=== PATIENT | male | born 1960 | race Caucasian/White ===

== ENCOUNTER 2021-08-03 10:43 | Outpatient (REF) | payer BC, SELFPAY ==
--- NOTE | ~2021-08-03 | XR_ITS ---
EXAMINATION: XR PELVIS CLINICAL INFORMATION: Pain COMPARISON: Pelvic x-rays July 16, 2019 TECHNIQUE: AP view of the pelvis. FINDINGS: The pelvic ring is intact. Sacroiliac joints are symmetric. Patient is status post left total hip arthroplasty. There is no periprosthetic fracture of the proximal left femur. Moderate degenerative changes of the right hip are again noted including moderately decreased right femoral acetabular joint space, osteophytes along the superolateral acetabulum and lateral femoral head/neck junction. There is also mild flattening of the right femoral head with mild coxa lobar angulation. Vascular calcifications noted. XR/XR pelvis 1-2V IMPRESSION: -Moderate degenerative changes of the right hip, similar in prominence to 2019 imaging.
== END 2021-08-03 10:44 | disposition home or self-care (01) ==
LOC: HO.HOSX 10:43
PROVIDERS: Visit Provider Orthopaedic Surgery
DX: M25.552 Pain in left hip (principal); Z96.642 Presence of left artificial hip joint
CPT/HCPCS: 20610; 72170; J1100

== ENCOUNTER → 2021-09-18 10:47 | Outpatient (BNVA) | payer BC, SELFPAY | PROVIDERS: Visit Provider Orthopaedic Surgery ==

== ENCOUNTER 2021-10-12 13:00 | Outpatient (RCR) | payer BC, SELFPAY ==
--- NOTE | 2021-08-11 13:05 | MHC.PT.EP ---
[facility] [place] Office [place] Office [place] Office [address] Brennan Hernández [address] [phone] F: [phone] F: [phone] F: [phone] F: [phone] Physical Therapy Plan of Care Date of Evaluation: Date of Surgery: ~4 years ago LEIF Diagnosis: contusion of L hip Assessment: Pt is a 61/yo retried M referred to PT for eval/treat for contusion of the L hip. Signs and symptoms presented are consisted with L hip dysfunction resulting in decreased ability and tolerance for the pt to perform WB activities such as walking, standing, sitting up from the chair, and negotiating stairs as well as decreased tolerance for performing functional household work like mowing his lawn. Functional limitation mentioned above are secondary to decreased strength, pain w/ end range motion, B muscle length discrepancy of hip flexor and HS (+ Joshua test, + SLR), TTP of L greater trochanteric region, LE postural impairment, gait deviation, and pain. pt is deemed appropriate to receive skilled PT to address his physical impairment and improve his functional abilities. Frequency and Duration: The patient will be seen 2x/wk for 5wk Short Term Goals: initiate HEP I w/ evidence of compliance pt will be able to ambulate 2 blocks w/ little to no difficulty Instructor Flying Goals: pt will be able to ambulate a mile with little to no difficulty; extreme difficulty pt will be able to negotiate 1 flight of stairs with little to no difficulty; initial mod difficulty pt will improve his LEFI score by the increment of 2 MDC/MCID; initial score 41/80 Treatment Plan: Modalities to reduce pain, spasms and effusion. Manual therapy to restore motion and function. Therapeutic exercise to improve strength and flexibility. Neuromuscular re-education for posture and balance. Therapeutic activities to return to functional activities of daily living. Electronically signed by: Bry Ellis PT Please sign and return to therapist. Thank you for your referral.
--- NOTE | 2021-12-22 13:37 | MHC.PT.DC ---
[facility] [place] Office [place] Office [place] Office [address] 140 [facility] [phone] F: [phone] F: [phone] F: [phone] F: [phone] Physical Therapy Discharge Report Diagnosis: contusion of L hip Date of Surgery: ~4 years ago LEIF Date of Evaluation: 08/11/21 Date of Discharge: 10/21/21 Treatments to Date: 12 Cancellations to Date: No Shows to Date: Discharge Status: Patient Elected to Stop Recommend MD Follow-up Discharge Summary: Pt called to cancel therapy; reports he persists with pain and gait dysfunction; Pt to f/u with ortho office. Electronically signed by: Bry Ellis PT. Please sign and return to therapist. Thank you for your referral.
== END 2021-12-22 13:37 | disposition home or self-care (01) ==
LOC: HO.PTCHIC 13:00
PROVIDERS: PCP Physician Assistant Medical; Visit Provider Orthopaedic Surgery
DX: S70.02XD Contusion of left hip, subsequent encounter (principal); Z96.642 Presence of left artificial hip joint
CPT/HCPCS: 97014; 97033; 97110; 97116; 97140; 97161

== ENCOUNTER 2021-10-30 10:35 | Outpatient (REF) | payer BC, SELFPAY ==
--- NOTE | ~2021-10-30 | XR_ITS ---
EXAMINATION: XR PELVIS. XR HIP, LEFT CLINICAL INFORMATION: Left hip pain. COMPARISON: 08/03/2021 TECHNIQUE: AP radiograph of the pelvis. Frog lateral view of the left hip. FINDINGS: Stable, standard appearance of the left total hip arthroplasty. No acute abnormality. Moderate degenerative changes of the right hip joint and the sacroiliac joints, similar to previous. XR/XR hip LT 1V IMPRESSION: Stable, standard appearance of the left total hip arthroplasty. 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
--- NOTE | ~2021-10-30 | XR_ITS ---
EXAMINATION: XR PELVIS. XR HIP, LEFT CLINICAL INFORMATION: Left hip pain. COMPARISON: 08/03/2021 TECHNIQUE: AP radiograph of the pelvis. Frog lateral view of the left hip. FINDINGS: Stable, standard appearance of the left total hip arthroplasty. No acute abnormality. Moderate degenerative changes of the right hip joint and the sacroiliac joints, similar to previous. XR/XR pelvis 1-2V IMPRESSION: Stable, standard appearance of the left total hip arthroplasty. 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
== END 2021-10-30 10:36 | disposition home or self-care (01) ==
LOC: HO.HOSX 10:35
PROVIDERS: Visit Provider Orthopaedic Surgery
DX: T84.031D Mechanical loosening of internal left hip prosthetic joint, subsequent encounter (principal)
CPT/HCPCS: 72170; 73501

== ENCOUNTER 2021-12-23 | Outpatient (REF) | payer BC, SELFPAY ==
[2021-12-23 12:16] VITALS: BP 201/91; PULSE 58; RESP 16; O2SAT 97; BMI 28.8
--- NOTE | 2021-12-23 12:36 | P.CONAN_ITS ---
HPI - Anesthesia Eval Consult details Narrative: Per Ortho notes, surgery cancelled and pt referred to Pain Management 61yo M for Left Hip Replacement Revision Total H/O of DI with total hip 2018. Glidescope = ok view, but difficulty advancing. Changed ETT from 8.0 to 7.5. Old anesthesia record on chart PCP Cleared BP elevated at PAT. Pt states forgot to take AM BP meds. Instructed to take WILLEM. 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 (Acute) Status post total hip replacement, left (Acute) Past Medical History Medical History Arthritis Fatty liver GERD (gastroesophageal reflux disease) Gout High cholesterol HTN (hypertension) Murmur, heart Shoulder joint pain Surgical History Surgical History H/O right knee surgery History of neck surgery Hx of colonoscopy Hx of elbow surgery Status post total hip replacement, left Social History Social History Are you a primary veterinarian laboratory animal care to a significant other at home: No Do you presently have visiting nurse or other home services: No Alcohol intake: current Alcohol intake frequency: holidays/special occasions only Patient Tobacco Use Status: Former Tobacco user Quit Date: 11/2019 Tobacco use type: Cigar Years Smoked: 30 Substance Use Type: Marijuana Narrative Narrative: No recent illness No CP/SOB with very limited activity. Limited to pain. Meds Allergies Allergy/AdvReac Type Severity Reaction Status Date / Time No Known Allergies Allergy Verified 12/31/21 10:08 [No Known Allergies*] Home Medications Medication Instructions Recorded Confirmed Last Taken Type acetaminophen 500 mg tablet 1,000 mg PO Q8H PRN 08/03/21 12/23/21 Unknown History allopurinol 100 mg tablet 200 mg PO DAILY 08/03/21 12/31/21 Unknown History atorvastatin 10 mg tablet 10 mg PO DAILY 08/03/21 12/31/21 Unknown History latanoprost 0.005 % eye drops 1 drp OPHTHALMIC (EYE) BEDTIME 08/03/21 12/31/21 Unknown History lisinopril 40 mg tablet 40 mg PO DAILY 08/03/21 12/31/21 Unknown History amlodipine 5 mg tablet 1 tab PO DAILY 12/23/21 12/31/21 Unknown History omeprazole 20 mg capsule,delayed 20 mg PO DAILY 12/23/21 12/31/21 Unknown History release tramadol 50 mg tablet 1 tab PO BID PRN 12/23/21 12/31/21 Unknown History trazodone 50 mg tablet 1 - 2 tab PO BEDTIME PRN 12/23/21 12/31/21 Unknown History Exam Exam Date and Time: December 23, 2021 1236 Height,Weight and Vital Signs: Height 5 ft 9 in Weight 88.451 kg Last Vital Signs Pulse 58 12/23/21 12:16 Resp 16 12/23/21 12:16 BP 201/91 H 12/23/21 12:16 Pulse Ox 97 12/23/21 12:16 Pertinent Lab Results Pertinent Lab Results: From outside facility WBC 6.6 Hgb 16 Hct 46.9 Plt 257 Na 139 K 4.6 Cl 107 CO2 26 BUN 20 Creat 1.03 Narrative Narrative: EKG 12/18/21 SR, ? LAE ECHO 2017 (reviewed with Dr Hernández, ok to proceed without updating) LVEF 60-65%, Mild LVH, No WMA Mild , Trace AI, thick leaflets Trace MR, mild MAC Airway Mallampati Class: I Neck ROM: Limited (S/P DISCECTOMY X 2) Adult Head Mouth w/Numbe Teeth: 1. CHIPPED Loose/Missing/Broken Teeth: Yes Heart: RRR + M Lungs: CTAB Assessment and Plan Assessment Anesthesia Assessment: Anesthesia Plan Discussed and PAT Visit
[2021-12-23 15:04] LABS: MRSA Nasal PCR NEGATIVE (Negative); SA Nasal PCR NEGATIVE (Negative)
== END 2021-12-23 00:01 ==
LOC: HO.PAT
PROVIDERS: Nurse Practitioner; PCP Physician Assistant Medical; Visit Provider Orthopaedic Surgery
DX: Z01.818 Encounter for other preprocedural examination (principal); T84.031A Mechanical loosening of internal left hip prosthetic joint, initial encounter
CPT/HCPCS: 86850; 86900; 86901; 87640; 87641

== ENCOUNTER → 2021-12-31 09:55 | Outpatient (BNVA) | payer BC, SELFPAY | PROVIDERS: PCP Physician Assistant Medical; Visit Provider Physician Assistant ==

== ENCOUNTER 2022-01-04 10:28 | Outpatient (REF) | payer BC, SELFPAY ==
--- NOTE | ~2022-01-04 | MR_ITS ---
EXAMINATION: MR LUMBAR SPINE WITHOUT CONTRAST CLINICAL INFORMATION: Mechanical loosening of internal left hip prosthesis. COMPARISON: None TECHNIQUE: MRI of the lumbar spine was obtained using routine sequences without contrast. FINDINGS: The lumbar vertebral bodies maintain normal alignment. There is mild chronic appearing compression of the superior endplate of L1 L1 small Schmorl's node also identified. No bone marrow edema is seen. The disc heights are well preserved. The distal spinal cord appears normal. The conus medullaris terminates normally at the L1 level. The visualized paraspinal muscles and intra-abdominal and pelvic contents are within normal limits. SPINAL LEVELS: L1-L2: No posterior disc abnormality. Mild facet arthropathy. No spinal canal or neural foraminal stenosis. L2-L3: Disc bulging with mild to moderate facet arthropathy. Shallow left foraminal protrusion. Mild bilateral neural foraminal stenosis. No spinal canal stenosis. L3-L4: Disc bulging with ligamentum flavum infolding mild to moderate facet arthropathy. Mild spinal canal stenosis. Moderate bilateral neural foraminal stenosis with mild compression of the exiting right more than left L3 nerve root. L4-L5: Disc bulging with central protrusion and annular fissuring. Moderate facet arthropathy. Mild spinal canal stenosis. Mild bilateral neural foraminal stenosis. L5-S1: Disc bulging with central protrusion and moderate facet arthropathy. No spinal canal or neural foraminal stenosis. MR/MR lumbar spine wo con IMPRESSION: Mild multilevel degenerative spondylosis. At L3-L4 there is moderate bilateral neural foraminal stenosis with mild compression of the exiting right more than left L3 nerve roots. No significant narrowing of the lumbar spinal canal. Mild chronic superior endplate depression at L1.
== END 2022-01-04 10:29 | disposition home or self-care (01) ==
LOC: HO.MRI 10:28
PROVIDERS: Visit Provider Orthopaedic Surgery
DX: Z01.818 Encounter for other preprocedural examination (principal); T84.031A Mechanical loosening of internal left hip prosthetic joint, initial encounter; M47.816 Spondylosis without myelopathy or radiculopathy, lumbar region; M48.061 Spinal stenosis, lumbar region without neurogenic claudication
CPT/HCPCS: 72148

== ENCOUNTER → 2022-01-28 14:20 | Outpatient (BNVA) | payer BC, SELFPAY | PROVIDERS: PCP Physician Assistant Medical; Visit Provider Orthopaedic Surgery ==

== ENCOUNTER → 2022-02-03 08:44 | Outpatient (BNVA) | payer BC, SELFPAY | PROVIDERS: PCP Physician Assistant Medical; Visit Provider Nurse Practitioner Family | DX: M48.061 Spinal stenosis, lumbar region without neurogenic claudication (principal); M25.552 Pain in left hip; M25.551 Pain in right hip; M25.511 Pain in right shoulder; M47.27 Other spondylosis with radiculopathy, lumbosacral region; Z79.899 Other long term (current) drug therapy; Z87.891 Personal history of nicotine dependence; Z96.642 Presence of left artificial hip joint | CPT/HCPCS: 99202 ==

== ENCOUNTER 2022-02-16 06:06 | Outpatient (REF) | payer BC, SELFPAY ==
--- NOTE | ~2022-02-16 | FL_ITS ---
EXAMINATION: XR FLUOROSCOPY WITH IMAGES CLINICAL INFORMATION: Spondylosis. COMPARISON: None. TECHNIQUE: Fluoroscopy performed by Haley Thomson. Fluoroscopy time: 0.5 minutes DAP: 2.60 Gycm2 Images: 2 FINDINGS: There aren't needles positioned adjacent and inferior L3 pedicles bilaterally with contrast opacifying the epidural space and the soft tissues for pain management. Visualized bones and soft tissues are normal. No visible bony fracture or abnormality except for mild spondylosis at the L2-L2 disc level. FL/FL guidance in treatment room IMPRESSION: Fluoroscopy guidance was provided to referring performer for pain management.
== END 2022-02-16 06:07 | disposition home or self-care (01) ==
LOC: HO.RADIR 06:06
PROVIDERS: Visit Provider Anesthesiology
DX: M47.27 Other spondylosis with radiculopathy, lumbosacral region (principal); M48.061 Spinal stenosis, lumbar region without neurogenic claudication; Z96.642 Presence of left artificial hip joint
CPT/HCPCS: 64483; J3300; Q9967

== ENCOUNTER → 2022-03-23 09:00 | Outpatient (BNVA) | payer BC, SELFPAY | PROVIDERS: PCP Physician Assistant Medical; Visit Provider Nurse Practitioner Family | DX: Z13.89 Encounter for screening for other disorder (principal) ==

== ENCOUNTER 2023-02-17 10:19 | Outpatient (REF) | payer BC, SELFPAY ==
[2023-02-17 11:35] LABS: MANUAL DIFF FLAG NO
[2023-02-17 11:59] LABS: Basophils Percent Auto 0.4 % (0-2); Eosinophils Absolute Auto 0.1 X10*3/uL (0.0-0.4); Eosinophils Percent Auto 1.5 % (0-4); Hematocrit 45.9 % (42.0-52.0); Hemoglobin 15.9 g/dl (14.0-18.0); Imm Gran Abs Auto 0.02 X10*3/uL (0.00-0.03); Imm Gran Pct Auto 0.3 % (0.0-0.4); Lymphocytes Absolute Auto 2.1 X10*3/uL (1.2-4.9); Lymphocytes Percent Auto 31.3 % (20-40); Mean Corpuscular HGB Conc 34.6 g/dl (31.0-36.0); Mean Corpuscular Hemoglobin 32.1 pg (27.0-33.0); Mean Corpuscular Volume 92.5 fL (80.0-98.0); Mean Platelet Volume 9.5 fL (9.4-12.4); Monocytes Absolute Auto 0.6 X10*3/uL (0.1-1.2); Monocytes Percent Auto 8.7 % (2-11); Neutrophils Absolute Auto 3.9 x10*3/uL (2.0-8.3); Neutrophils Percent Auto 57.8 % (45-73); Platelet Count 260 X10*3/uL (160-400); Red Blood Count 4.96 X10*6/uL (4.60-5.80); Red Cell Distribution Width 12.9 % (11.0-16.0); White Blood Count 6.7 X10*3/uL (4.8-10.8)
[2023-02-17 12:33] LABS: Alanine Aminotransferase 61 U/L (0-40); Albumin Level 4.8 g/dL (3.5-5.0); Alkaline Phosphatase 90 U/L (39-117); Anion Gap 16 (12-20); Aspartate Amino Transferase 30 U/L (5-37); Bilirubin Total 0.6 mg/dL (0.0-1.0); Blood Urea Nitrogen 13 mg/dL (9-16); C Reactive Protein 0.16 mg/dL (< or = 0.50); Calcium 9.6 mg/dL (8.4-10.2); Carbon Dioxide 21 mmol/L (22-29); Chloride 107 mmol/L (96-108); Estimated Glomerular Filt Rate > 60; Glucose Random 145 mg/dL (60-115); Potassium 3.9 mmol/L (3.3-5.1); Rheumatoid Factor < 13.0 IU/mL (<15.0); Sodium 140 mmol/L (135-145); Total Protein 7.3 g/dL (6.5-8.0)
[2023-02-17 12:39] LABS: Ferritin 549 ng/mL (20-250)
[2023-02-17 12:41] LABS: Erythrocyte Sedimentation Rate 5 MM/HR (0-15)
[2023-02-17 14:10] LABS: Appearance Urine Clear; Color Urine Yellow; Glucose Urine UA Negative (Negative); Leukocyte Esterase Urine Negative (Negative); Nitrite Urine Negative (Negative); Urine Blood Negative (Negative); Urine Ketones Negative (Negative); Urine Protein Negative (Neg-Trace)
[2023-02-17 14:12] LABS: Bacteria Urine None Seen (None Seen); Hyaline Casts Urine 0-2 /LPF (0-2); RBC Urine 0-2 /HPF (0-2); Squamous Epithelial Cell Urine 0-2 /HPF (0-2); WBC Urine 0-5 /HPF (0-5)
[2023-02-17 15:02] LABS: Creatinine Urine 158.94 mg/dL; Protein/Creatinine Ratio, Ur 0.08 (<0.2); Total Protein Urine Random 13 mg/dL (<12)
[2023-02-18 08:25] LABS: HBS Num1 0.12 mIU/mL (0-7.99); HBc Num1 0.07 S/CO (0.00-0.79); Hepatitis A Antibody IgM 0.16 Index (0-0.79); Hepatitis B Core Antibody Nonreactive (Nonreactive); Hepatitis B Surface Antigen Negative (Negative); ~Hepatitis A Antibody IgM Nonreactive (Nonreactive); ~Hepatitis B Surface Antibody NONREACTIVE (Nonreactive); ~Hepatitis C Antibody Nonreactive (Nonreactive)
[2023-02-18 23:23] LABS: Complement C3 140 mg/dL (82-185)
[2023-02-20 05:08] LABS: TS Negative Control Passed; TS Panel A 0; TS Panel B 0; TS Positive Control Passed; TSpotTB Negative (Negative)
[2023-02-20 15:28] LABS: Anti Nuclear Antibody Screen NEGATIVE (NEGATIVE)
[2023-02-21 17:44] LABS: Anti DNA DS Antibody <1 IU/mL; Antibody to SS-A Antigen <1.0 NEG AI (<1.0 NEG); Antibody to SS-B Antigen <1.0 NEG AI (<1.0 NEG); Myeloperoxidase Antibody <1.0 AI; Proteinase 3 PR3 Antibodies <1.0 AI; SM/Ribonucleoprotein Ab <1.0 NEG AI (<1.0 NEG); Smith Protein <1.0 NEG AI (<1.0 NEG)
[2023-02-22 13:09] LABS: Cyclic Citrullinated Peptide <16 UNITS
[2023-02-22 14:17] LABS: IgA 189 mg/dL (70-320); IgG 963 mg/dL (600-1540); IgM 100 mg/dL (50-300)
[2023-02-23 00:24] LABS: Prot Elec - Albumin 4.7 g/dL (3.8-4.8); Prot Elec - Alpha1 0.3 g/dL (0.2-0.3); Prot Elec - Alpha2 0.8 g/dL (0.5-0.9); Prot Elec - Beta 1 0.5 g/dL (0.4-0.6); Prot Elec - Beta 2 0.3 g/dL (0.2-0.5); Prot Elec - Gamma 0.9 g/dL (0.8-1.7); Prot Elec - Total Protein 7.4 g/dL (6.1-8.1)
[2023-02-23 05:19] LABS: Angiotensin Converting Enzyme 5 U/L (9-67)
[2023-02-23 21:24] LABS: Lysozyme, Serum 4.6 mcg/mL (5.0-11.0)
[2023-02-24 13:33] LABS: DNAds, Crithidia Antibody Negative (Negative)
== END 2023-02-17 10:20 | disposition home or self-care (01) ==
LOC: HO.LAB 10:19
PROVIDERS: PCP Physician Assistant Medical; Visit Provider Student in an Organized Health Care Education/Training Program
DX: Z11.59 Encounter for screening for other viral diseases (principal); Z11.7 Encounter for testing for latent tuberculosis infection; D86.9 Sarcoidosis, unspecified; M32.9 Systemic lupus erythematosus, unspecified; I77.6 Arteritis, unspecified; R61 Generalized hyperhidrosis; M06.09 Rheumatoid arthritis without rheumatoid factor, multiple sites; Z72.89 Other problems related to lifestyle
CPT/HCPCS: 36415; 80053; 81001; 82164; 82728; 82784; 84156; 84165; 85025; 85549; 85652; 86021; 86038; 86039; 86140; 86160; 86200; 86225; 86235; 86255; 86334; 86431; 86481; 86704; 86706; 86709; 86803; 87340

== ENCOUNTER 2023-02-21 08:47 | Outpatient (REF) | payer BC, SELFPAY ==
--- NOTE | ~2023-02-21 | XR_ITS ---
EXAMINATION: XR PELVIS CLINICAL INFORMATION: Pain. COMPARISON: None available. TECHNIQUE: AP view of the pelvis. FINDINGS: There is a total left hip prosthesis in satisfactory alignment. There is minimal loss of right hip joint space with periacetabular spurring. No visible acute fracture, dislocation or subluxation seen. No bony erosive changes. The SI joints are symmetric and normal. XR/XR pelvis 1-2V IMPRESSION: Total left hip prosthesis in satisfactory alignment. Mild loss of right hip joint space with right acetabular spurring. The soft tissues are normal.
== END 2023-02-21 08:48 | disposition home or self-care (01) ==
LOC: HO.HOSX 08:47
PROVIDERS: Visit Provider Orthopaedic Surgery
DX: Z96.642 Presence of left artificial hip joint (principal)
CPT/HCPCS: 72170

== ENCOUNTER → 2023-03-08 10:47 | Outpatient (REF) | payer BC, SELFPAY ==
--- NOTE | ~2023-03-08 | NM_ITS ---
EXAMINATION: THREE PHASE BONE SCAN AND WHOLE-BODY BONE SCAN CLINICAL INFORMATION: 62-year-old male, status post left total hip replacement on March 2018. Left hip pain. History of right knee and elbow surgery. History of back surgery for lumbar stenosis. COMPARISON: Outside three-phase bone scan of the pelvis done on 07/13/2021. Radiograph of the pelvis done on 02/21/2023. TECHNIQUE: Initial rapid sequence images were obtained over the pelvis during the bolus injection of 29 mCi Tc-99m MDP. The radiotracer was injected through right antecubital superficial vein without complications. Static images of the pelvis including both hips and the rest of the entire skeleton were then obtained 2.25 hours post injection. FINDINGS: 3 phase bone scan: The initial flow and subsequent blood pool images appear unremarkable. Specifically, no evidence of any asymmetric increased flow are blood pool activity identified around the left hip prosthesis. Subsequent delayed images shows minimal increased radiotracer activity at the interface between the distal femoral component of the prosthesis in the proximal femoral shaft, when correlating with the prior radiographs of the pelvis done on 02/21/2023, likely represent physiologic changes. Whole-body bone scan: In the head, unremarkable. In the thoracic cage and upper extremities, the anterolateral aspect of the left seventh eighth and ninth ribs shows increased radiotracer activities, most consistent with rib fractures. Radiographic correlation to determine the age of the fractures may be considered, if clinically appropriate. In the spine, no suspicious focal lesion. In the pelvis, postsurgical changes of left hip prosthesis is noted. Please refer to the three-phase bone scan of the report for further full details. In the lower extremities, mildly increased radiotracer activities around the right mid and forefoot and around the left ankle likely represent arthritic and/or posttraumatic changes. No other definite bony abnormalities are noted. The urinary bladder and faint visualization of both kidneys are noted. NM/NM bone 3 phase IMPRESSION: 1. No scintigraphic evidence of left hip prosthetic abnormality identified. Mild increased asymmetric radiotracer activity at the junction between the distal femoral component of the prosthesis in the proximal femoral shaft likely represents physiologic changes, when correlating with the prior radiographs of the pelvis done on 02/21/2023. There are no prior studies available for comparison 2. Likely left hemithoracic rib fractures at lower anterior lateral rib cage. Radiographic correlation to determine the age of the fractures may be considered, if clinically appropriate. 3. Likely posttraumatic and/or arthritic changes involving the region of the left ankle and the right mid and forefoot.
== END ==
LOC: HO.NUCMED 10:47
PROVIDERS: PCP Physician Assistant Medical; Visit Provider Orthopaedic Surgery
DX: Z96.642 Presence of left artificial hip joint (principal)
CPT/HCPCS: 78315; A9503

== ENCOUNTER → 2023-03-24 08:28 | Outpatient (BNVA) | payer BC, SELFPAY | PROVIDERS: PCP Physician Assistant Medical; Visit Provider Orthopaedic Surgery | DX: M25.552 Pain in left hip (principal); M48.061 Spinal stenosis, lumbar region without neurogenic claudication; Z96.642 Presence of left artificial hip joint | CPT/HCPCS: J1100 ==

== ENCOUNTER 2023-06-10 13:41 | Outpatient (AMB) | payer BC, SELFPAY ==
[2023-06-10 13:44] VITALS: BP 142/74; PULSE 66; TEMP 36.4; O2SAT 98; BMI 27.0
--- NOTE | 2023-06-10 13:44 | A.OFFVIS_ITS ---
Intake Vital Signs 06/10/23 13:44 Height 5 ft 9 in Weight 182 lb 8.684 oz BMI 27.0 BP 142/74 H Blood Pressure Location Rt brachial Position Sitting Pulse 66 Pulse Source Pulse Oximeter Temp 97.6 F Temp Source Skin Pulse Oximetry (%) 98 Intake Visit Reasons: RA Intake Note: Pt seen today for RA follow up. Follows with Ortho, completed PT. 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 Accompanied by: Self / Same As Patient Allergies No Known Allergies [No Known Allergies*] Allergy (Verified 06/10/23 13:47) Medication List - Last Reconciled 06/10/23 by Brittany Basilio MD acetaminophen 1,000 mg PO Q8H PRN allopurinol 200 mg PO DAILY amlodipine 10 mg PO DAILY atorvastatin 10 mg PO BEDTIME hydralazine 20 mg PO BID latanoprost 0.005% 1 drp ophthalmic (eye) BEDTIME lisinopril 40 mg PO DAILY miscellaneous medical supply (Blood Pressure Cuff) As directed omeprazole 20 mg PO DAILY tizanidine 2 mg PO BID PRN trazodone 1 - 2 tabs PO BEDTIME PRN HPI HPI Comments History of Present Illness Details Patient returns for follow-up after completion of his blood work. Doing well overall. No more episodes of sweats like the episode he had in October of 2022. He was evaluated by his orthopedist Dr. Nguyen and then injection was done followed by physical therapy which helps. Patient believes physical therapy does provide benefit. He is having pain in his right big toe, worse with walking. Otherwise denies any other swollen or tender joints. Initial history: This is a 62-year-old male with a past medical history of seronegative RA who presents for evaluation of night sweats. The condition started back in October of 2022 when patient had a few week history shortness of breath, headaches, he had a few days of night sweats, he would wake up with his clothes drenched in sweat. He would get occasional palpitations. He mentions a couple of days when he had a fever around 101. He also lost a few lb and he was not eating as much. He denies any skin rashes. He denies any history of DVT/PE. He went to the emergency room and had a CT pulmonary angiogram which was unremarkable he was then followed up with his PCP and had a CT abdomen and CT chest with contrast which failed to reveal the etiology of his symptoms. 2D echo shoulder His inflammatory markers were mildly elevated. He denies any worsening joint pain or joint swelling during this time. He states that currently he is feeling much better. His symptoms are improving now, shortness of breath is better but continues to get winded when going up the stairs. No longer has night sweats. Weight is going back up. No joint pain or swelling at this time except for his left hip. He is going to schedule an appointment with his orthopedic surgeon Dr. Nguyen. In 2017 patient was diagnosed with seronegative RA by Dr. Borden and was briefly on methotrexate which was discontinued due to LFT abnormality with no recurrence of inflammatory arthritis. [facility] Medical History Arthritis Fatty liver Fusion of spine, cervical region GERD (gastroesophageal reflux disease) Gout High cholesterol HTN (hypertension) Murmur, heart Shoulder joint pain Steroid-induced diabetes Surgical History H/O right knee surgery History of neck surgery Hx of colonoscopy Hx of elbow surgery Previous back surgery Status post total hip replacement, left Family History Mother Arthritis Glaucoma Father Stroke Social History Are you a primary animal care service worker to a significant other at home: No Do you presently have visiting nurse or other home services: No Alcohol intake: current Alcohol intake frequency: a few times a month Patient Tobacco Use Status: Former Tobacco user Quit Date: 11/2019 Tobacco use type: Cigar Years Smoked: 30 Substance Use Type: Marijuana Review of Systems [facility] [place] arthralgias Physical Exam Vital Signs: Last Vital Signs Temp 97.6 F 06/10/23 13:44 Pulse 66 06/10/23 13:44 BP 142/74 H 06/10/23 13:44 Pulse Ox 98 06/10/23 13:44 BMI result Body Mass Index 27.0 Const General: cooperative, healthy appearing and comfortable Nutritional Appearance: overweight Orientation/consciousness: patient oriented x3 Limitations: no limitations HEENT Head: Yes normocephalic and Yes atraumatic Resp Effort & Inspection: normal respiratory effort and able to speak in complete sentences Neuro General: patient oriented x3 Extrem Other: Significant osteoarthritic changes of both hands with no active synovitis. Bilateral foot bunions Results Reviewed Results Reviewed: X-RAY EXAM OF SHOULDER, COMPLETE Exam Date: 07/09/2021? 9:35 AM Ordering Diagnosis: History of rheumatoid arthritis ? ? History: Right shoulder pain. ? Right shoulder, 4 views: Compared to 03/24/2017.? There has been some interval progression of? glenohumeral joint degeneration.? Very mild AC joint and shoulder outlet degeneration are? radiographically stable.? There is no evidence of calcific tendinopathy on today's examination. ? Tiny calcification seen previously may be obscured or may have resolved. ? IMPRESSION IMPRESSION: Interval progression of glenohumeral joint degeneration compared to 03/24/2017. RADEX HIP UNILATERAL WITH PELVIS 2-3 VIEWS Exam Date: 07/09/2021? 9:34 AM Ordering Diagnosis: Status post fall ? ? History: Bilateral hip pain after falling. ? AP pelvis and 2 additional views of both hips: Compared to 01/30/2021.? Total hip arthroplasty? on the left remains intact.? Components are appropriately aligned.? Mild degeneration is again? noted in the right hip with some flattening of the femoral head.? Bilateral SI joint? degeneration is again noted as well.? There is no evidence of fracture or dislocation.? There? been no appreciable significant changes. IMPRESSION IMPRESSION: No acute radiographic findings. X-RAY EXAM OF WRIST, COMPLETE Exam Date: 05/28/2021 12:53 PM Ordering Diagnosis: History of fall TFCC (triangular fibrocartilage complex) injury, left, initial encounter ? ? LEFT WRIST ? VIEWS: 3 routine +2 navicular. ? HISTORY: Injury 04/29/2021. ? FINDINGS: ? There is mild degenerative change of the 1st CMC joint; 1st MCP joint; and IP joint. ? There is no acute fracture, malalignment, joint effusion, soft tissue abnormality, or? radiopaque foreign body. The carpal bones are normally aligned. ? IMPRESSION IMPRESSION:? Mild degenerative changes. ? No acute findings. X-RAY EXAM OF FOOT, COMPLETE (3 VIEWS) Exam Date: 04/06/2021 11:00 AM Ordering Diagnosis: Foot pain, right ? ? Right foot series: ? HISTORY: Right foot pain ? 3 views compared with 01/20/2015.? Severe osteoarthritis 1st MTP joints increased from prior? study.? No acute fracture or dislocation.? Small plantar calcaneal spur.? Mild osteoarthritis? talonavicular joint unchanged. ? No stress fracture or focal 5th metatarsal bone pathology. ? IMPRESSION IMPRESSION: Severe osteoarthritis 1st MTP joint increased from 01/20/2015 X-RAY EXAM OF WRIST, COMPLETE Exam Date: 02/05/2021? 9:26 AM Ordering Diagnosis: History of fall ? ? History: Pain following trauma. ? Right wrist , 5 views: Bony structures are radiographically intact. There is no evidence of? fracture or dislocation.? Soft tissues are unremarkable. ? IMPRESSION Normal views of the wrist. RADEX HIP UNILATERAL WITH PELVIS 2-3 VIEWS Exam Date: 01/30/2021 10:39 AM Ordering Diagnosis: Strain of right hip adductor muscle, initial encounter ? ? AP view of the pelvis, right hip, 2 views. History pain.? Status post fall. ? There is no visible displaced fractures.? There is bulging of the lateral contour of the? femoral head and neck which could cause femoral acetabular impingement.? There are moderate? degenerative changes in the hip joint.? There are small osteophytes arising from the greater? trochanter.? There are sclerotic changes in the inferior aspect of the SI joints, more? prominent on the right. ? There is evidence of? left total hip replacement. ? CONCLUSIONS: No visible displaced fractures or dislocations.? Degenerative and postsurgical? changes as detailed. X-RAY EXAM OF HAND, 3+ VIEWS Exam Date: 05/04/2017 12:19 PM Ordering Diagnosis: Idiopathic gout, unspecified chronicity, unspecified site ? ? BILATERAL HANDS-6 VIEWS ? INDICATION: Bilateral arthritis; idiopathic gout. ? COMPARISON: None available. ? FINDINGS: ? Right hand: AP, oblique, and lateral radiograph of the right hand demonstrate no acute,? displaced fracture or dislocation. There are marked degenerative changes at the second distal? interphalangeal joint with exuberant osteophyte formation, sclerosis, and joint space? narrowing. Additional dorsal spurring is noted at the third distal interphalangeal joint. Joint ?spaces appear otherwise preserved throughout with no evidence for osseous erosive change.? Radiocarpal alignment is preserved on the lateral view. Osseous demineralization appears within ?normal limits. ? Left hand: AP, oblique, and lateral radiograph of the left hand demonstrate no acute, displaced ?fracture or dislocation. Mild degenerative changes are noted at the distal interphalangeal? joints, greatest at the second and third digits. Nonspecific calcifications along the lateral? base of the third proximal phalanx noted. Mild spurring at the base of the first proximal? phalanx. No evidence for osseous erosive change. Radiocarpal alignment is preserved on the? lateral view. ? IMPRESSION IMPRESSION: 1. No acute fracture or dislocation. 2. Degenerative changes at both hands, as above, most severe at the right second distal? interphalangeal joint. Overall, this appearance is most compatible with osteoarthritis. No? osseous erosive changes noted. CT ABD & PELVIS W/CONTRAST Exam Date: 11/12/2022 ? CT ABD \ PELVIS W/CONTRAST ? HISTORY: Night sweats.? Chills with fever.? . ? PROCEDURE: Multiple axial images are obtained from the upper abdomen and pelvis. Oral and? intravenous contrast was administered.? The patient received 90 mL OPTIRAY 320 IV. ? PRIOR STUDIES: Abdominal ultrasound 09/15/2019. ? RADIATION DOSAGE: ctdi 13.5 to mGy. ? FINDINGS: ? Liver: Unremarkable. ? Pancreas: Unremarkable. ? Kidneys: Unremarkable. ? Adrenal glands: Unremarkable. ? Spleen: Unremarkable ? Gallbladder: Unremarkable. Appendix: Unremarkable. ? GI tract: Unremarkable.? ? Vasculature: Abdominal aorta is normal in caliber.? There is moderate atherosclerosis.. ? Bladder: Not well distended.? Details limited by beam hardening artifact from the left hip? prosthesis.. ? Reproductive organs: Prostatic calcifications.? Seminal vesicles are unremarkable.? However,? detail is limited by hardening artifact from left hip prosthesis. ? Abdominal wall: No ventral hernia. ? Lymph nodes: Unremarkable. ? Bones: There is a left hip prosthesis.? There is degenerative change of the spine.? There is? mild wedging of the L1 vertebral body.? Mild degenerative change of the spine. ? Lung bases: Clear.? ? IMPRESSION: No evidence of acute abdominopelvic pathology CT chest with contrast 12/13? Central airways patent, clear lungs, no pleural effusion or pneumothorax.? No mediastinal or hilar adenopathy no pericardial effusion.? Esophagus is normal.? Thoracic aorta is normal in size Hepatic steatosis No axillary lymphadenopathy or superficial hematoma Impression No acute process in the chest.? No cause for patient's reported symptoms identified 2D echo 09/2022? Conclusions Mild eccentric hypertrophy of the intraventricular septum.? Otherwise normal wall thickness.? Normal systolic function with EF near 60%.? Indeterminate diastolic function.? No wall motion abnormalities? Mild enlargement of the right ventricle with normal function.?? The aortic valve is calcified with a mild degree of aortic stenosis.? Mean gradient of 17 and PTI ratio of 0.47 1+ aortic insufficiency? 1+ mitral insufficiency? 1+ tricuspid insufficiency.? The gradient across the valve is 30 mm Hg.? The inferior vena cava is body ligated with slightly blunted inspiratory collapse diaz ggesting a mild increase in the central venous pressure.? Estimated peak PA systolic pressure probably in the range of 35-40 mm Hg? When compared to March 2018 there has been a mild increase in the gradient across the aortic valve.? No other significant change 2D echo 09/2022? Conclusions Mild eccentric hypertrophy of the intraventricular septum.? Otherwise normal wall thickness.? Normal systolic function with EF near 60%.? Indeterminate diastolic function.? No wall motion abnormalities? Mild enlargement of the right ventricle with normal function.?? The aortic valve is calcified with a mild degree of aortic stenosis.? Mean gradient of 17 and PTI ratio of 0.47 1+ aortic insufficiency? 1+ mitral insufficiency? 1+ tricuspid insufficiency.? The gradient across the valve is 30 mm Hg.? The inferior vena cava is body ligated with slightly blunted inspiratory collapse suggesting a mild increase in the central venous pressure.? Estimated peak PA systolic pressure probably in the range of 35-40 mm Hg? When compared to March 2018 there has been a mild increase in the gradient across the aortic valve.? No other significant change Assessment & Plan Assessment & Plan (1) Rheumatoid arthritis: Comment: CCP and RF negative Onset 12/2016. Methotrexate and prednisone 04/2017 Left THR 04/06 Methotrexate held 06/07 - LFT elevations.? Methotrexate eventually stopped with no flare of disease.?? Whether this was a reactive arthritis. Code(s): M06.9 - Rheumatoid arthritis, unspecified Qualifiers: Rheumatoid arthritis location: multiple sites Rheumatoid factor presence: without rheumatoid factor Qualified Code(s): M06.09 - Rheumatoid arthritis without rheumatoid factor, multiple sites Plan: This is a 62-year-old male with a past medical history of seronegative RA who was referred for evaluation of night sweats, shortness of breath, palpitations, fatigue, weight loss without any worsening joint complaints.? CT chest and abdomen & pelvis? with contrast did not reveal the cause of his symptoms.? Patient's symptoms seem to have self. Extensive serology did not show any signs of active autoimmune rheumatic disease. There is no evidence of active synovitis upon my evaluation today. Symptoms rather consistent with generalized osteoarthritis. Advised patient to consider evaluation by product development carpenter for his bunions. Follow-up as needed Coding Level of Care Code Est Pt Level 3 (38865) Diagnoses Rheumatoid arthritis M06.09 Rheumatoid arthritis location: multiple sites Rheumatoid factor presence: without rheumatoid factor
== END 2023-06-10 14:03 | disposition home or self-care (01) ==
PROVIDERS: PCP Physician Assistant Medical; Visit Provider Student in an Organized Health Care Education/Training Program
DX: M06.09 Rheumatoid arthritis without rheumatoid factor, multiple sites (principal)
CPT/HCPCS: 99213

== ENCOUNTER → 2023-06-10 13:41 | Outpatient (BNVA) | payer BC, SELFPAY | PROVIDERS: PCP Physician Assistant Medical; Visit Provider Student in an Organized Health Care Education/Training Program ==

== ENCOUNTER 2023-06-23 09:00 | Outpatient (RCR) | payer BC, SELFPAY ==
--- NOTE | 2023-04-11 15:04 | MHC.PT.EP ---
[facility] [place] Office [place] Office [place] Office [address] Brennan Hernández [address] [phone] F: [phone] F: [phone] F: [phone] F: [phone] Physical Therapy Plan of Care Date of Evaluation: Date of Surgery: 04/07/18 Diagnosis: pain in L hip presence of L artificial hip joint HEP for strengthening L gluteal, L quad/HS/core Assessment: 62 y/o male referred to PT with pain in L hip, presence of L artificial hip joint, HEP for strengthening L gluteal, L quad/HS/core. Of note, he had a L LEIF in 2018; then in 2020 he slipped and fell landing on buttocks resulting in L lateral hip pain that is still present today. He limits his walking, standing, sidelying and no longer performs hobbies of ice fishing and hunting d/t L hip pain. He will also have pain once he takes weight off L LE after prolonged standing. Examination shows decreased L hip ROM, decreased lumbar AROM, decreased muscle length of HS/gastroc/piriformis/quads, TTP piriformis/proximal HS/ITB, and impaired gait pattern Recommend PT 2x/week for 4 weeks to address impairments, implement HEP, and optimize functional mobility. Frequency and Duration: The patient will be seen 2x/week for 4 weeks Short Term Goals: 2 weeks compliant with HEP Improve quad length to 110 (IR 90*) to decrease tension along pelvis Group Home Goals: 4 weeks I with HEP and self managemente of sx Pt will be able to walk > 30 minutes with pain < 3/10 Pt will improved hip rotator strength to 4+/5 to improve stability at pelvis Treatment Plan: Modalities to reduce pain, spasms and effusion. Manual therapy to restore motion and function. Therapeutic exercise to improve strength and flexibility. Neuromuscular re-education for posture and balance. Therapeutic activities to return to functional activities of daily living. Electronically signed by: Rhea Chu PT Please sign and return to therapist. Thank you for your referral.
--- NOTE | 2023-09-01 08:33 | MHC.PT.DC ---
[facility] [place] Office [place] Office [place] Office [address] Brennan Hernández [address] [phone] F: [phone] F: [phone] F: [phone] F: [phone] Physical Therapy Discharge Report Diagnosis: pain in L hip presence of L artificial hip joint HEP for strengthening L gluteal, L quad/HS/core Date of Surgery: 04/07/18 Date of Evaluation: 04/11/23 Date of Discharge: 09/01/23 Treatments to Date: 14 Cancellations to Date: 0 No Shows to Date: 0 Discharge Status: Patient Elected to Stop Recommend MD Follow-up Discharge Summary: Pt elected to stop PT and f/u with MD. d/t worsening hip sx. His last treatment assessment on 06/23/2023: Pt presents today still with worsening pain which is quite severe at times. He feels like he is back to step one and his pain is causing a lot of limitations. He still has strength deficits on the L and functional deficits as well especially with walking. At this point pt has had 14 visits of skilled PT and is not significantly better. I do not feel it is appropriate to continue at this time although I am not the primary PT so I gave the pt the option of seeing his primary PT for 1 more visit to see if they have a different recommendation. I recommend following up with MD to further discuss this pain. We discussed this today and pt is understanding and agreeing. Electronically signed by: Rhea Chu PT Please sign and return to therapist. Thank you for your referral.
== END 2023-09-01 08:34 | disposition home or self-care (01) ==
LOC: HO.PTCHIC 09:00
PROVIDERS: Visit Provider Orthopaedic Surgery
DX: Z96.642 Presence of left artificial hip joint (principal)
CPT/HCPCS: 97110; 97140; 97161; 97530

== ENCOUNTER 2023-08-11 14:21 | Outpatient (AMB) | payer BC, SELFPAY ==
--- NOTE | 2023-08-11 11:14 | MHC.OFFVIS ---
Intake Vital Signs 08/11/23 14:36 Height 5 ft 9 in Weight 182 lb BMI 26.9 Intake Visit Reasons: OV-Left hip injection-last injection 03/24/23 Intake Note: Clay is a 63 year old male who presents today for a follow up of his left hip. he had a left hip injection done on 03/24/23. Patient rpeorts that he has no relief from this injection. He reports that he took a fall about a week ago and has also had an episode of significant pain where he could not release pressure from the leg with out having significant pain. Allergies No Known Allergies [No Known Allergies*] Allergy (Verified 06/10/23 13:47) HPI OV-Left hip injection-last injection 03/24/23 HPI Details Clay is a 62 year old man who returns to discuss his left hip pain, S/P left LEIF, DOS: 03/28/18, and a fall sometime in April 2021, which led to an increase in left hip, leg and LBP. He was last seen and injected on 03/24/23, with [ ] relief. He would like a repeat injection today. He continues to complain of intermittent pain in his left hip. He denies any pain in the mornings but his pain increases when he walks or moves around, worsening throughout the day. He occasionally walks with a cane. He is limited in his walking capacity due to his pain, saying it is hard to walk his dog across the local park. He has been seen by Pain Management previously for lumbar stenosis and symptoms of radiculopathy, and has received back injection which he says did not improve his hip pain. He says these injections paralyzed my leg and he was walking while dragging his foot for some time afterwards. He denies any burning, numbness, or tingling, and complains only of LBP. He has right hip OA but denies any pain or difficulty. [facility] Medical History Steroid-induced diabetes Fusion of spine, cervical region Murmur, heart Arthritis Gout Fatty liver GERD (gastroesophageal reflux disease) Shoulder joint pain High cholesterol HTN (hypertension) Surgical History Previous back surgery H/O right knee surgery Hx of elbow surgery Hx of colonoscopy History of neck surgery Status post total hip replacement, left Family History Mother Arthritis Glaucoma Father Stroke Social History Are you a primary care transitions manager to a significant other at home: No Do you presently have visiting nurse or other home services: No Alcohol intake: current Alcohol intake frequency: a few times a month Patient Tobacco Use Status: Former Tobacco user Quit Date: 11/2019 Tobacco use type: Cigar Years Smoked: 30 Substance Use Type: Marijuana Review of Systems Const All systems reviewed & are unremarkable except as noted in HPI and below Physical Exam Vital Signs: BMI result Body Mass Index 26.9 Const General: no acute distress and alert Orientation/consciousness: patient oriented x3 HEENT Head: Yes normocephalic and Yes atraumatic Eyes EOM: EOMs intact bilaterally Resp Effort & Inspection: normal respiratory effort and able to speak in complete sentences Cardio Jugular venous distension: no JVD Skin General skin exam: turgor normal Rashes: no rashes Neuro General: patient oriented x3 Extrem Other: Left Hip: TTP lateral hip just at distal most aspect of incision No soft tissue swelling No groin pain Psych Appearance: grossly normal Affect: normal affect Attitude: cooperative Office Procedures Joint Injection/Drain Joint Injection/Drain Details: Injected 1 mL of Decadron and 3 mL 1% lidocaine and 3 mL of 0.25% Marcaine. Site was prepped using aseptic technique. Patient tolerated the procedure well. Primary Site: other (left greater trochanter) Approach Used: posterolateral Coding 03351 - Large joint Procedure code (CPT) selection complete Results Reviewed Results Reviewed: 08/11/23 14:43 BUPivacaine MPF 0.25 % [Sensorcaine-MPF 0.25% 10 ML] 10 ml .ROUTE .STK-MED ONE Lidocaine HCl 2 % MPF [Xylocaine 2 % MPF] 5 ml .ROUTE .STK-MED ONE dexAMETHasone sod phosphate [Decadron] 4 mg .ROUTE .STK-MED ONE Nuclear medicine bone scan, 03/08/23 1. No scintigraphic evidence of left hip prosthetic abnormality identified. Mild increased asymmetric radiotracer activity at the junction between the distal femoral component of the prosthesis in the proximal femoral shaft likely represents physiologic changes, when correlating with the prior radiographs of the pelvis done on 02/21/2023. There are no prior studies available for comparison 2. Likely left hemithoracic rib fractures at lower anterior lateral rib cage. Radiographic correlation to determine the age of the fractures may be considered, if clinically appropriate. 3. Likely posttraumatic and/or arthritic changes involving the region of the left ankle and the right mid and forefoot. Assessment & Plan Assessment & Plan (1) Left hip pain: Code(s): M25.552 - Pain in left hip Plan: This is a 62 year old man with ongoing left hip pain. He is S/P left LEIF, DOS: 03/28/18, and 2 years S/P fall. He denies any groin pain or pain with hip ROM, but does have worsening pain with weight-bearing & ambulation. He reports doing well until he fell 2 years ago. He lives an active lifestyle with hunting, ice fishing, and walking his dog daily, which is difficult due to his pain, and he is limited in his ambulatory capacity even with the use of an assistive device. There are changes seen to his distal stem on X-ray, which may be significant, however his recent bone scan was unremarkable for any hardware loosening. He found mild relief from his previous steroid injection & PT, and he would like a repeat injection today. (2) Lumbar stenosis: Code(s): M48.061 - Spinal stenosis, lumbar region without neurogenic claudication Plan: Has been seen by Pain Management and has a Hx of steroid injections to his lower back, without relief. (3) History of total left hip arthroplasty: Comment: 03/28/18 Code(s): Z96.642 - Presence of left artificial hip joint Orders: Referrals Pain Management Referral M25.552 - Pain in left hip, Z96.642 - Presence of left artificial hip joint Coding Level of Care Code Est Pt Level 3 (06847) Diagnoses Left hip pain M25.552 Lumbar stenosis M48.061 History of total left hip arthroplasty Z96.642 CPT Codes Coding - Large joint: 38653 - Large joint ([id number])
[2023-08-11 14:36] VITALS: BMI 26.9
== END 2023-08-11 15:03 | disposition home or self-care (01) ==
PROVIDERS: PCP Physician Assistant Medical; Visit Provider Orthopaedic Surgery
DX: M25.552 Pain in left hip (principal); M48.061 Spinal stenosis, lumbar region without neurogenic claudication; Z96.642 Presence of left artificial hip joint
CPT/HCPCS: 20610; 99213

== ENCOUNTER → 2023-08-11 14:21 | Outpatient (BNVA) | payer BC, SELFPAY | PROVIDERS: PCP Physician Assistant Medical; Visit Provider Orthopaedic Surgery | DX: M25.552 Pain in left hip (principal); M48.061 Spinal stenosis, lumbar region without neurogenic claudication; Z96.642 Presence of left artificial hip joint | CPT/HCPCS: 20610; J1100 ==

== ENCOUNTER 2023-08-23 14:58 | Outpatient (AMB) | payer BC, SELFPAY ==
--- NOTE | 2023-08-23 14:59 | MHC.OFFVIS ---
Intake Vital Signs 08/23/23 15:03 Height 5 ft 9 in Weight 184 lb BMI 27.2 BP 162/82 H Blood Pressure Location Rt brachial Position Sitting Pulse 61 Pulse Source Pulse Oximeter Pulse Oximetry (%) 98 Oxygen Delivery Method Room Air Intake Visit Reasons: hip pain/ Confirmed. Intake Note: Pain today 02/28 Back Shoe Operator Required: No Accompanied by: Self / Same As Patient Allergies No Known Allergies [No Known Allergies*] Allergy (Verified 08/23/23 15:04) HPI HPI Comments History of Present Illness Details Patient is a pleasant 63 years old male with history of chronic left hip pain status post total hip arthroplasty 03/2018 and fall in April 2021 which led him in increase left lateral hip and low back pain. Patient reports he recently received left GTB injection on 08/11/23 with ongoing 60% pain relief so far. Reports left hip pain with weight bearing and prolonged walking, cannot sleep on his left side, and changing positions. Patient reports his walking capacity, mobility and ADLs are significantly affected by left hip pain. At times he feels his left leg will give out. Patient reports his back pain is chronic but is mild at the moment. He does have mild localized tenderness in the projection of left sacroiliac joint area and moderate tenderness in the lateral hip area. Denies fever, weight changes, abdominal or groin pain, numbness, tingling, bladder or bowel dysfunction or saddle anesthesia. PRIOR 05/04/22 Haley Guerrero ADMINISTRATOR PESTICIDE: Clay returns to review effectiveness of tizanidine. He reports minimal relief with its use and still reports lower back pain, L<R. He reports the pain radiates from the left lower back into the hip down laterally and anteriorly to the knee. He denies any numbness, tingling or bowel/bladder dysfunction. his pain is exacerbated by walking and is constantly holding his left hip and lower back outlining where his pain is the most severe. PRIOR: Clay returns to review effectiveness of the bilateral L3-L4 TFESI performed on 02/16/[address] Steel. He was unable to give me a numerical value as far as pain alleviation. He did note that previously he needed a cane to ambulate due to the pain which was slowly resolving prior to the injection and he has been able to ambulate unassisted and move freely over the past few weeks. He now has radiating back pain with associated numbness which he has had intermittently and received good relief with previous injections performed by Dr. Calzada. Of note, he did report a 20-30 minute episode of severe radiating groin pain on the left, about one week after his injection that resolved spontaneously. Previous procedures with Dr. Calzada: Left S1 TFESI 11/2015, 02/2016, 04/2016 Right C6 TFESI 11/2012 T2-T3 MICHAEL 01/2020 C7-T1 MICHAEL 05/2016 L5-S1 MICHAEL 07/2016, 08/2017, 11/2017, 07/2018 PRIOR: Clay is a pleasant 61 year old male who presents to the office with complaints of bilateral hip and low back pain. He reports a longstanding history of low back pain which was exacerbated after sustaining a fall in April. He also had a left hip replacement 4 years [address] Nguyen and after his fall he was evaluated at [facility] who question hardware loosening. He then was reevaluated by Dr. Nguyen who attributes his bilateral hip and low back pain to possible back pathology and sent him for a lumbar spine MRI. This report is dictated below. He reports most pain travels across the low back, into bilateral hips and occasionally radiates down the leg laterally and posteriorly to the knee. He denies any fever numbness, tingling, weakness, saddle anesthesia or bowel/bladder dysfunction. The pain is worse at night as he reports difficulty with laying on his hips. He reports pain onset was gradual, constant and rates the pain a 5-8/10. He states the pain is interfering with sleep, activities of daily living and cannot function normally. The patient reports the pain in terms of tissue damage as aching. The pain is exacerbated by prolonged walking/standing. He reports being unable to walk for more than 10-15 minutes due to pain. He does not having any alleviation with sitting or laying down. He has been using tylenol with partial relief. Clay has attempted physical therapy on two separate occasions. He states the first time he was discharged due to exacerbation of pain and the second time he discontinued due to inability to tolerate. He previously received injections with Dr Calzada in the past of both cervical and lumbar spine but he can not recall what exact procedures were performed.He is also unsure if the pain he had in the past is different from the exacerbation of pain he has had since April s/p fall. He briefly spoke about his right shoulder pain as well which has been present for years. He reports significant pain and stiffness upon waking up in the morning to the point where he needs to use his left hand to mobilize the RUE. He states that this stiffness resolves within an hour or so then has good ROM. He previously received injections of the right shoudler with his machinery mechanic with good effect. He is interested in scheduling a right shoudler injection after we target his back pain. He is s/p ACDF C4-C5 C5-C6 01/2017, left total hip arthroplasty 03/2018. [facility] Medical History Steroid-induced diabetes Fusion of spine, cervical region Murmur, heart Arthritis Gout Fatty liver GERD (gastroesophageal reflux disease) Shoulder joint pain High cholesterol HTN (hypertension) Surgical History Previous back surgery H/O right knee surgery Hx of elbow surgery Hx of colonoscopy History of neck surgery Status post total hip replacement, left Family History Mother Arthritis Glaucoma Father Stroke Social History Are you a primary health care / medical job titles to a significant other at home: No Do you presently have visiting nurse or other home services: No Alcohol intake: current Alcohol intake frequency: a few times a month Patient Tobacco Use Status: Former Tobacco user Quit Date: 11/2019 Tobacco use type: Cigar Years Smoked: 30 Substance Use Type: Marijuana Review of Systems Const All systems reviewed & are unremarkable except as noted in HPI and below Neuro Denies Sensory deficit (Neuro) Physical Exam Vital Signs: Last Vital Signs Pulse 61 08/23/23 15:03 BP 162/82 H 08/23/23 15:03 Pulse Ox 98 08/23/23 15:03 Oxygen Delivery Method Room Air 08/23/23 15:03 BMI result Body Mass Index 27.2 General: Appears afebrile. Alert and oriented. Mood and affect appropriate. Follows and participates in conversation appropriately. Respiratory effort is unlabored. No cough. Able to transition from sit to stand unassisted. Back/Spine/Pelvis Other: Facet loading positive bilaterally. Lumbar extension reproduces mild pain, no pain with flexion. Stinchfield and Pelvic compression tests are positive on the left. Judy's test positive on the left. Mild TTP in projection of the left SIJ and moderate TTP in left GTB and lateral lower hip. Unable to perform Morro test due to pain. 5/5 motor strength. Cervical Spine: cervical ROM normal and No Cervical spine tenderness Thoracic/Lumbar Spine: thoracic and lumbar spine normal to inspection, Lasegue's sign negative, straight leg raise negative bilaterally, No thoracic spinal tenderness and No lumbar spinal tenderness Neuro Gait exam (Neuro): Antalgic gait present and No Assistive device used Motor exam (neuro): 5/5 motor strength present throughout, no tremor noted and Motor abnormalities not present Sensory Exam: No Sensory deficit (Neuro) Results Reviewed Results Reviewed: THREE PHASE BONE SCAN AND WHOLE-BODY BONE SCAN 03/08/23 CLINICAL INFORMATION: 62-year-old male, status post left total hip replacement on March 2018. Left hip pain. History of right knee and elbow surgery. History of back surgery for lumbar stenosis. COMPARISON: Outside three-phase bone scan of the pelvis done on 07/13/2021. Radiograph of the pelvis done on 02/21/2023. TECHNIQUE: Initial rapid sequence images were obtained over the pelvis during the bolus injection of 29 mCi Tc-99m MDP. The radiotracer was injected through right antecubital superficial vein without complications. Static images of the pelvis including both hips and the rest of the entire skeleton were then obtained 2.25 hours post injection. FINDINGS: 3 phase bone scan: The initial flow and subsequent blood pool images appear unremarkable. Specifically, no evidence of any asymmetric increased flow are blood pool activity identified around the left hip prosthesis. Subsequent delayed images shows minimal increased radiotracer activity at the interface between the distal femoral component of the prosthesis in the proximal femoral shaft, when correlating with the prior radiographs of the pelvis done on 02/21/2023, likely represent physiologic changes. Whole-body bone scan: In the head, unremarkable. In the thoracic cage and upper extremities, the anterolateral aspect of the left seventh eighth and ninth ribs shows increased radiotracer activities, most consistent with rib fractures. Radiographic correlation to determine the age of the fractures may be considered, if clinically appropriate. In the spine, no suspicious focal lesion. In the pelvis, postsurgical changes of left hip prosthesis is noted. Please refer to the three-phase bone scan of the report for further full details. In the lower extremities, mildly increased radiotracer activities around the right mid and forefoot and around the left ankle likely represent arthritic and/or posttraumatic changes. No other definite bony abnormalities are noted. The urinary bladder and faint visualization of both kidneys are noted. IMPRESSION: 1. No scintigraphic evidence of left hip prosthetic abnormality identified. Mild increased asymmetric radiotracer activity at the junction between the distal femoral component of the prosthesis in the proximal femoral shaft likely represents physiologic changes, when correlating with the prior radiographs of the pelvis done on 02/21/2023. There are no prior studies available for comparison 2. Likely left hemithoracic rib fractures at lower anterior lateral rib cage. Radiographic correlation to determine the age of the fractures may be considered, if clinically appropriate. 3. Likely posttraumatic and/or arthritic changes involving the region of the left ankle and the right mid and forefoot. XR/XR pelvis 1-2V 02/21/23 IMPRESSION: Total left hip prosthesis in satisfactory alignment. Mild loss of right hip joint space with right acetabular spurring. The soft tissues are normal. 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 FINDINGS: The lumbar vertebral bodies maintain normal alignment. There is mild chronic appearing compression of the superior endplate of L1 L1 small Schmorl's node also identified. No bone marrow edema is seen. The disc heights are well preserved. The distal spinal cord appears normal. The conus medullaris terminates normally at the L1 level. The visualized paraspinal muscles and intra-abdominal and pelvic contents are within normal limits. SPINAL LEVELS: L1-L2: No posterior disc abnormality. Mild facet arthropathy. No spinal canal or neural foraminal stenosis. L2-L3: Disc bulging with mild to moderate facet arthropathy. Shallow left foraminal protrusion. Mild bilateral neural foraminal stenosis. No spinal canal stenosis. L3-L4: Disc bulging with ligamentum flavum infolding mild to moderate facet arthropathy. Mild spinal canal stenosis. Moderate bilateral neural foraminal stenosis with mild compression of the exiting right more than left L3 nerve root. L4-L5: Disc bulging with central protrusion and annular fissuring. Moderate facet arthropathy. Mild spinal canal stenosis. Mild bilateral neural foraminal stenosis. L5-S1: Disc bulging with central protrusion and moderate facet arthropathy. No spinal canal or neural foraminal stenosis. IMPRESSION: Mild multilevel degenerative spondylosis. At L3-L4 there is moderate bilateral neural foraminal stenosis with mild compression of the exiting right more than left L3 nerve roots. No significant narrowing of the lumbar spinal canal. Mild chronic superior endplate depression at L1. Assessment & Plan Assessment & Plan (1) Left hip pain: Code(s): M25.552 - Pain in left hip (2) History of total left hip arthroplasty: Comment: 03/28/18 Code(s): Z96.642 - Presence of left artificial hip joint (3) Sacroiliac joint pain: Code(s): M53.3 - Sacrococcygeal disorders, not elsewhere classified (4) Lumbar facet arthropathy: Code(s): M47.816 - Spondylosis without myelopathy or radiculopathy, lumbar region Plan Patient presents with persistent left lateral hip pain with history of LEIF in 03/2018 and fall in 04/2021. Most recent imaging for pelvic, lumbar spine and bone scan were reviewed with patient. His back and SIJ pain is minimal today and without radicular pain. We will proceed with further evaluation of painful left hip arthroplasty s/p fall with CT scan to evaluate distal part of left hip prosthesis and left lateral area. All questions and concerns have been answered and patient agreed with the plan. Follow up for CT scan results and sooner as needed. Orders: Orders CT hip LT wo/w IV con Today M25.552 - Pain in left hip, Z96.642 - Presence of left artificial hip joint Coding Level of Care Code Est Pt Level 4 (39262) Diagnoses Left hip pain M25.552 History of total left hip arthroplasty Z96.642 Sacroiliac joint pain M53.3 Lumbar facet arthropathy M47.816
[2023-08-23 15:03] VITALS: BP 162/82; PULSE 61; O2SAT 98; BMI 27.2
== END 2023-08-23 15:25 | disposition home or self-care (01) ==
PROVIDERS: PCP Physician Assistant Medical; Visit Provider Nurse Practitioner Family
DX: M25.552 Pain in left hip (principal); Z96.642 Presence of left artificial hip joint; M53.3 Sacrococcygeal disorders, not elsewhere classified; M47.816 Spondylosis without myelopathy or radiculopathy, lumbar region
CPT/HCPCS: 99214

== ENCOUNTER → 2023-08-23 14:58 | Outpatient (BNVA) | payer BC, SELFPAY | PROVIDERS: PCP Physician Assistant Medical; Visit Provider Nurse Practitioner Family ==

== ENCOUNTER 2023-09-19 07:32 | Outpatient (REF) | payer BC, SELFPAY ==
--- NOTE | ~2023-09-19 | CT_ITS ---
EXAMINATION: CT HIP WITHOUT CONTRAST, LEFT CLINICAL INFORMATION: Pain in left hip. COMPARISON: X-rays of the pelvis 03/08/2023. X-ray of the pelvis and hip 10/30/2021. The bone scan 03/08/2023. TECHNIQUE: Multidetector volumetric imaging was obtained through the left hip without contrast material. Multiplanar reformatted images were submitted in coronal and sagittal planes. This CT examination was performed using dose optimization techniques as appropriate, variously including the following: *Automated exposure control *Adjustment of mA and/or kV according to patient size (this includes techniques or standardized protocols for targeted exams where dose is matched to indication/reason for exam; i.e. extremities or head) *Use of iterative reconstruction technique DLP: 318 mGy-cm FINDINGS: Left total hip arthroplasty noted with components in usual position and unchanged. No periprosthetic fracture or suspicious area of lucency. The surrounding bone is normal. There is osteoarthritis of the left sacroiliac joint with bridging osteophytes present anteriorly and distally. Muscles/tendons: There is a small amount of calcification along the distal gluteus medius tendon. This could reflect calcific tendinosis/calcific tendinitis. Remaining muscles and tendons unremarkable. [id number] arterial calcification throughout compatible with calcific atherosclerotic disease. Small fat-containing left inguinal hernia. Lymph nodes normal. Neurovascular structures: Unremarkable. CT/CT hip LT wo IV con IMPRESSION: 1. Left total hip arthroplasty without evidence for complication by CT. 2. Osteoarthritis of the left sacroiliac joint. 3. Calcific atherosclerotic disease. 4. Small fat-containing left inguinal hernia.
== END 2023-09-19 07:33 | disposition home or self-care (01) ==
LOC: HO.CT 07:32
PROVIDERS: PCP Physician Assistant Medical; Visit Provider Nurse Practitioner Family
DX: T84.84XA Pain due to internal orthopedic prosthetic devices, implants and grafts, initial encounter (principal); Z96.642 Presence of left artificial hip joint
CPT/HCPCS: 73700

== ENCOUNTER 2023-10-04 06:38 | Outpatient (REF) | payer BC, SELFPAY ==
--- NOTE | ~2023-10-04 | FL_ITS ---
EXAMINATION: XR FLUOROSCOPY WITH IMAGES CLINICAL INFORMATION: Sacrococcygeal disorders, not elsewhere classified. COMPARISON: None available. TECHNIQUE: Fluoroscopy Supervised By: Dr. Kenji Steel. Fluoroscopy Time: 0.1 minute. Cumulative Dose: 1.30 mGy. DAP: 0.0226 Gycm2. Images: 1. FINDINGS: Image demonstrates needle placement and contrast injection over the left sacroiliac joint FL/FL guidance in treatment room IMPRESSION: Fluoroscopy guidance for pain management procedure
== END 2023-10-04 06:39 | disposition home or self-care (01) ==
LOC: CF 06:38
PROVIDERS: PCP Physician Assistant Medical; Visit Provider Anesthesiology
DX: M53.3 Sacrococcygeal disorders, not elsewhere classified (principal); M25.552 Pain in left hip; M47.816 Spondylosis without myelopathy or radiculopathy, lumbar region; M43.22 Fusion of spine, cervical region; Z96.642 Presence of left artificial hip joint
CPT/HCPCS: 27096; J2795; Q9967

== ENCOUNTER 2023-10-04 12:48 | Outpatient (AMB) | payer BC, SELFPAY ==
[2023-10-04 12:55] VITALS: BP 140/72; BP 144/70; PULSE 61; PULSE 70; RESP 14; O2SAT 97; O2SAT 98; BMI 27.2
--- NOTE | 2023-10-04 12:55 | MHC.OFFVIS ---
Intake Vital Signs 10/04/23 12:55 10/04/23 12:55 Height 5 ft 9 in 5 ft 9 in Weight 184 lb 184 lb BMI 27.2 27.2 BP 144/70 H 140/72 H Blood Pressure Location Lt brachial Lt brachial Position Sitting Sitting Respiration 14 14 Pulse 70 61 Pulse Source Pulse Oximeter Pulse Oximeter Pulse Oximetry (%) 97 98 Oxygen Delivery Method Room Air Room Air Comment pre-op post-op Intake Visit Reasons: L DX SIJ INJ/LOCAL Allergies No Known Allergies [No Known Allergies*] Allergy (Verified 10/04/23 12:56) PFSH Medical History Steroid-induced diabetes Fusion of spine, cervical region Murmur, heart Arthritis Gout Fatty liver GERD (gastroesophageal reflux disease) Shoulder joint pain High cholesterol HTN (hypertension) Surgical History Previous back surgery H/O right knee surgery Hx of elbow surgery Hx of colonoscopy History of neck surgery Status post total hip replacement, left Family History Mother Arthritis Glaucoma Father Stroke Social History Are you a primary child daycare worker to a significant other at home: No Do you presently have visiting nurse or other home services: No Alcohol intake: current Alcohol intake frequency: a few times a month Patient Tobacco Use Status: Former Tobacco user Quit Date: 11/2019 Tobacco use type: Cigar Years Smoked: 30 Substance Use Type: Marijuana Physical Exam Vital Signs: Last Vital Signs Pulse 61 10/04/23 12:55 Resp 14 10/04/23 12:55 BP 140/72 H 10/04/23 12:55 Pulse Ox 98 10/04/23 12:55 Oxygen Delivery Method Room Air 10/04/23 12:55 BMI result Body Mass Index 27.2 Assessment & Plan Assessment & Plan (1) Left hip pain: Code(s): M25.552 - Pain in left hip (2) History of total left hip arthroplasty: Comment: 03/28/18 Code(s): Z96.642 - Presence of left artificial hip joint (3) Sacroiliac joint pain: Code(s): M53.3 - Sacrococcygeal disorders, not elsewhere classified Plan: Left diagnostic sacroiliac joint injection. Informed consent was explained thoroughly to the patient. All questions about benefits and risks for the procedure were answered. Patient came to the operating room and was positioned prone on the operating table with the pillow under the pelvis. Time out was performed delineating name and of the patient, allergies and the nature of the procedure. The lower back and buttocks of the patient were prepped with ChloraPrep prepped and draped with sterile utility towels. C-arm was brought over the operating field and sq picture of patient's pelvis was demonstrated on the screen. For the left joint tilting C-arm contralateral to the site of the joint the most posterior portion of the joints was superimposed with anterior silhouette of the joint. Skin was injected in the projection of the joint slightly medial to the location of the joint with 25 gauge 1/2 inch needle using local lidocaine 2% .After that 22 gauge 3 and 1/2 inch needle was driven to the right joint in tunnel vision fashion. When needle entered the joint capsule injection of the contrast was performed demonstrating intra-articular and minimally periarticular spread of the contrast. After that 5 cc. of ropivacaine 0.5% was injected into the joint. Upon completion of the injections the needle was removed Sterile dressing was applied. Upon completion of the injection patient was taken outside of the operating room to the recovery room where recovered uneventfully. (4) Lumbar facet arthropathy: Code(s): M47.816 - Spondylosis without myelopathy or radiculopathy, lumbar region Plan Patient presents with persistent left lateral hip pain with history of LEIF in 03/2018 and fall in 04/2021. Most recent imaging for pelvic, lumbar spine and bone scan were reviewed with patient. His back and SIJ pain is minimal today and without radicular pain. We will proceed with further evaluation of painful left hip arthroplasty s/p fall with CT scan to evaluate distal part of left hip prosthesis and left lateral area. All questions and concerns have been answered and patient agreed with the plan. Follow up for CT scan results and sooner as needed. Orders: Orders FL guidance in treatment room Today M53.3 - Sacrococcygeal disorders, not elsewhere classified Coding Level of Care Code Procedure Only Diagnoses Left hip pain M25.552 History of total left hip arthroplasty Z96.642 Sacroiliac joint pain M53.3 Lumbar facet arthropathy M47.816
== END 2023-10-04 13:35 | disposition home or self-care (01) ==
LOC: HO.PMCPRC 12:48
PROVIDERS: PCP Physician Assistant Medical; Visit Provider Anesthesiology
DX: M53.3 Sacrococcygeal disorders, not elsewhere classified (principal)
CPT/HCPCS: 27096

== ENCOUNTER 2023-10-06 08:36 | Outpatient (AMB) | payer BC, SELFPAY ==
--- NOTE | 2023-10-06 08:40 | MHC.OFFVIS ---
Intake Vital Signs 10/06/23 08:44 Height 5 ft 9 in Weight 184 lb 3 oz BMI 27.2 BP 160/79 H Blood Pressure Location Rt brachial Position Sitting Pulse 75 Pulse Source Pulse Oximeter Pulse Oximetry (%) 97 Oxygen Delivery Method Room Air Intake Visit Reasons: L DX SIJ INJ 10/04/23 Intake Note: Pain today 11/30 Novelty Dipper Required: No Accompanied by: Self / Same As Patient Allergies No Known Allergies [No Known Allergies*] Allergy (Verified 10/06/23 08:45) HPI HPI Comments History of Present Illness Details Patient presents today to assess response to Left Diagnostic Sacroiliac Joint Injection on 10/04/[address] Steel. Patient reports 90% pain relief for 12 hours since procedure with significant improvement in his functioning, mobility, sleep and ADLs. However, patient reports minimal improvement in his left posterior thigh and continues to experience pain in his left hamstring. Patient is interested to proceed with therapeutic left sacroiliac joint injection and formal course of PT to improve his left thigh strength, flexibility, and mobility. Denies fever, weight changes, abdominal or groin pain, numbness, tingling, bladder or bowel dysfunction or saddle anesthesia. Past Procedures: 10/04/23: Left Diagnostic Sacroiliac Joint Injection-90% pain relief for 12 hours PRIOR: Patient is a pleasant 63 years old male with history of chronic left hip pain status post total hip arthroplasty 03/2018 and fall in April 2021 which led him in increase left lateral hip and low back pain. Patient reports he recently received left GTB injection on 08/11/23 with ongoing 60% pain relief so far. Reports left hip pain with weight bearing and prolonged walking, cannot sleep on his left side, and changing positions. Patient reports his walking capacity, mobility and ADLs are significantly affected by left hip pain. At times he feels his left leg will give out. Patient reports his back pain is chronic but is mild at the moment. He does have mild localized tenderness in the projection of left sacroiliac joint area and moderate tenderness in the lateral hip area. Denies fever, weight changes, abdominal or groin pain, numbness, tingling, bladder or bowel dysfunction or saddle anesthesia. PRIOR 05/04/22 Haley Guerrero ENOLOGIST: Clay returns to review effectiveness of tizanidine. He reports minimal relief with its use and still reports lower back pain, L<R. He reports the pain radiates from the left lower back into the hip down laterally and anteriorly to the knee. He denies any numbness, tingling or bowel/bladder dysfunction. his pain is exacerbated by walking and is constantly holding his left hip and lower back outlining where his pain is the most severe. PRIOR: Clay returns to review effectiveness of the bilateral L3-L4 TFESI performed on 02/16/[address] Steel. He was unable to give me a numerical value as far as pain alleviation. He did note that previously he needed a cane to ambulate due to the pain which was slowly resolving prior to the injection and he has been able to ambulate unassisted and move freely over the past few weeks. He now has radiating back pain with associated numbness which he has had intermittently and received good relief with previous injections performed by Dr. Calzada. Of note, he did report a 20-30 minute episode of severe radiating groin pain on the left, about one week after his injection that resolved spontaneously. Previous procedures with Dr. Calzada: Left S1 TFESI 11/2015, 02/2016, 04/2016 Right C6 TFESI 11/2012 T2-T3 MICHAEL 01/2020 C7-T1 MICHAEL 05/2016 L5-S1 MICHAEL 07/2016, 08/2017, 11/2017, 07/2018 PRIOR: Clay is a pleasant 61 year old male who presents to the office with complaints of bilateral hip and low back pain. He reports a longstanding history of low back pain which was exacerbated after sustaining a fall in April. He also had a left hip replacement 4 years [address] performed [address] Nguyen and after his fall he was evaluated at [facility] who question hardware loosening. He then was reevaluated by Dr. Nguyen who attributes his bilateral hip and low back pain to possible back pathology and sent him for a lumbar spine MRI. This report is dictated below. He reports most pain travels across the low back, into bilateral hips and occasionally radiates down the leg laterally and posteriorly to the knee. He denies any fever numbness, tingling, weakness, saddle anesthesia or bowel/bladder dysfunction. The pain is worse at night as he reports difficulty with laying on his hips. He reports pain onset was gradual, constant and rates the pain a 5-8/10. He states the pain is interfering with sleep, activities of daily living and cannot function normally. The patient reports the pain in terms of tissue damage as aching. The pain is exacerbated by prolonged walking/standing. He reports being unable to walk for more than 10-15 minutes due to pain. He does not having any alleviation with sitting or laying down. He has been using tylenol with partial relief. Clay has attempted physical therapy on two separate occasions. He states the first time he was discharged due to exacerbation of pain and the second time he discontinued due to inability to tolerate. He previously received injections with Dr Calzada in the past of both cervical and lumbar spine but he can not recall what exact procedures were performed.He is also unsure if the pain he had in the past is different from the exacerbation of pain he has had since April/fall. He briefly spoke about his right shoulder pain as well which has been present for years. He reports significant pain and stiffness upon waking up in the morning to the point where he needs to use his left hand to mobilize the RUE. He states that this stiffness resolves within an hour or so then has good ROM. He previously received injections of the right shoudler with his pot annealer with good effect. He is interested in scheduling a right shoudler injection after we target his back pain. He is s/p ACDF C4-C5 C5-C6 01/2017, left total hip arthroplasty 03/2018. [facility] Medical History Steroid-induced diabetes Fusion of spine, cervical region Murmur, heart Arthritis Gout Fatty liver GERD (gastroesophageal reflux disease) Shoulder joint pain High cholesterol HTN (hypertension) Surgical History Previous back surgery H/O right knee surgery Hx of elbow surgery Hx of colonoscopy History of neck surgery Status post total hip replacement, left Family History Mother Arthritis Glaucoma Father Stroke Social History Are you a primary hospice home care coordinator to a significant other at home: No Do you presently have visiting nurse or other home services: No Alcohol intake: current Alcohol intake frequency: a few times a month Patient Tobacco Use Status: Former Tobacco user Quit Date: 11/2019 Tobacco use type: Cigar Years Smoked: 30 Substance Use Type: Marijuana Review of Systems Const All systems reviewed & are unremarkable except as noted in HPI and below Neuro Denies Sensory deficit (Neuro) Physical Exam Vital Signs: Last Vital Signs Pulse 75 10/06/23 08:44 BP 160/79 H 10/06/23 08:44 Pulse Ox 97 10/06/23 08:44 Oxygen Delivery Method Room Air 10/06/23 08:44 BMI result Body Mass Index 27.2 General: Appears afebrile. Alert and oriented. Mood and affect appropriate. Follows and participates in conversation appropriately. Respiratory effort is unlabored. No cough. Able to transition from sit to stand unassisted. Back/Spine/Pelvis Other: Limited lumbar ROM. Facet loading positive bilaterally. Stinchfield and Pelvic compression tests are positive on the left. Judy's test positive on the left. Mild TTP left GTB and hamstring. Bilateral 5/5 motor strength. Cervical Spine: cervical ROM normal and No Cervical spine tenderness Thoracic/Lumbar Spine: thoracic and lumbar spine normal to inspection, No Thoracic/lumbar spine scar(s), Lasegue's sign negative, straight leg raise negative bilaterally, No thoracic spinal tenderness and No lumbar spinal tenderness Sacroiliac joints: on the right nontender and on the left tender to palpation Neuro Gait exam (Neuro): Antalgic gait present and No Assistive device used Motor exam (neuro): 5/5 motor strength present throughout, no tremor noted and Motor abnormalities not present Sensory Exam: No Sensory deficit (Neuro) Results Reviewed Results Reviewed: CT HIP WITHOUT CONTRAST, LEFT 09/19/23 CLINICAL INFORMATION: Pain in left hip. COMPARISON: X-rays of the pelvis 03/08/2023. X-ray of the pelvis and hip 10/30/2021. The bone scan 03/08/2023. FINDINGS: Left total hip arthroplasty noted with components in usual position and unchanged. No periprosthetic fracture or suspicious area of lucency. The surrounding bone is normal. There is osteoarthritis of the left sacroiliac joint with bridging osteophytes present anteriorly and distally. Muscles/tendons: There is a small amount of calcification along the distal gluteus medius tendon. This could reflect calcific tendinosis/calcific tendinitis. Remaining muscles and tendons unremarkable. [id number] arterial calcification throughout compatible with calcific atherosclerotic disease. Small fat-containing left inguinal hernia. Lymph nodes normal. Neurovascular structures: Unremarkable. IMPRESSION: 1. Left total hip arthroplasty without evidence for complication by CT. 2. Osteoarthritis of the left sacroiliac joint. 3. Calcific atherosclerotic disease. 4. Small fat-containing left inguinal hernia. Assessment & Plan Assessment & Plan (1) Left hip pain: Code(s): M25.552 - Pain in left hip (2) History of total left hip arthroplasty: Comment: 03/28/18 Code(s): Z96.642 - Presence of left artificial hip joint (3) Sacroiliac joint pain: Code(s): M53.3 - Sacrococcygeal disorders, not elsewhere classified Plan Patient is status post Left Diagnostic Sacroiliac Joint Injection with 90% pain relief for 12 hours and improved functioning, ADLs and sleep. He would like to proceed with therapeutic injection and another course of PT to strengthen his left leg for increased function, hamstring strength and flexibility in his movements. Script was provided today. Will proceed with Left Therapeutic Sacroiliac Joint Injection with local and fluoroscopy as next steps for a more sustained pain relief. We also discussed neuromodulation with Curonix PNS trial and SIJ RFA procedures. Expectations, risks and benefits were reviewed. Patient is aware he will be contacted to schedule this procedure. All questions were answered and the patient is in agreement of plan. Follow-up after injections and sooner as needed. Orders: Orders PT Evaluation and Treatment Today M25.552 - Pain in left hip, M53.3 - Sacrococcygeal disorders, not elsewhere classified, Z96.642 - Presence of left artificial hip joint Coding Level of Care Code Est Pt Level 3 (48368) Diagnoses Left hip pain M25.552 History of total left hip arthroplasty Z96.642 Sacroiliac joint pain M53.3
[2023-10-06 08:44] VITALS: BP 160/79; PULSE 75; O2SAT 97; BMI 27.2
== END 2023-10-06 09:05 | disposition home or self-care (01) ==
PROVIDERS: PCP Physician Assistant Medical; Visit Provider Nurse Practitioner Family
DX: M25.552 Pain in left hip (principal); Z96.642 Presence of left artificial hip joint; M53.3 Sacrococcygeal disorders, not elsewhere classified
CPT/HCPCS: 99213

== ENCOUNTER → 2023-10-06 08:36 | Outpatient (BNVA) | payer BC, SELFPAY | PROVIDERS: PCP Physician Assistant Medical; Visit Provider Nurse Practitioner Family ==

== ENCOUNTER 2023-11-01 06:04 | Outpatient (REF) | payer BC, SELFPAY ==
--- NOTE | ~2023-11-01 | FL_ITS ---
EXAMINATION: XR FLUOROSCOPY WITH IMAGES CLINICAL INFORMATION: Sacrococcygeal disorders, not elsewhere classified. COMPARISON: None available. TECHNIQUE: Fluoroscopy Supervised By: Dr. Kenji Steel. Fluoroscopy Time: 0.1 minute. Cumulative Dose: 3.01 mGy. DAP: 0.0444 Gycm2. Images: 1. FINDINGS: Image demonstrates needle placement and contrast injection over the left sacroiliac joint. FL/FL guidance in treatment room IMPRESSION: Fluoroscopy guidance for left sacroiliac joint injection.
== END 2023-11-01 06:05 | disposition home or self-care (01) ==
LOC: CF 06:04
PROVIDERS: Visit Provider Anesthesiology
DX: M53.3 Sacrococcygeal disorders, not elsewhere classified (principal); M47.816 Spondylosis without myelopathy or radiculopathy, lumbar region; M25.552 Pain in left hip; Z96.642 Presence of left artificial hip joint
CPT/HCPCS: 27096; J2795; J3301; Q9967

== ENCOUNTER 2023-11-01 07:54 | Outpatient (AMB) | payer BC, SELFPAY ==
[2023-11-01 07:54] VITALS: BP 130/70; PULSE 58; RESP 16; O2SAT 99; BMI 27.2
--- NOTE | 2023-11-01 07:54 | MHC.OFFVIS ---
Intake Vital Signs 11/01/23 07:54 11/01/23 09:20 Height 5 ft 9 in 5 ft 9 in Weight 184 lb 184 lb BMI 27.2 27.2 BP 130/70 130/68 Blood Pressure Location Lt brachial Lt brachial Position Sitting Sitting Respiration 16 14 Pulse 58 52 Pulse Source Pulse Oximeter Pulse Oximeter Pulse Oximetry (%) 99 98 Oxygen Delivery Method Room Air Room Air Comment Pre-Op post-op Intake Visit Reasons: L SIJ STEROID INJ/LOCAL Allergies No Known Allergies [No Known Allergies*] Allergy (Verified 11/01/23 09:21) PFS Medical History Steroid-induced diabetes Fusion of spine, cervical region Murmur, heart Arthritis Gout Fatty liver GERD (gastroesophageal reflux disease) Shoulder joint pain High cholesterol HTN (hypertension) Surgical History Previous back surgery H/O right knee surgery Hx of elbow surgery Hx of colonoscopy History of neck surgery Status post total hip replacement, left Family History Mother Arthritis Glaucoma Father Stroke Social History Are you a primary primary care coordinator to a significant other at home: No Do you presently have visiting nurse or other home services: No Alcohol intake: current Alcohol intake frequency: a few times a month Patient Tobacco Use Status: Former Tobacco user Quit Date: 11/2019 Tobacco use type: Cigar Years Smoked: 30 Substance Use Type: Marijuana Physical Exam Vital Signs: Last Vital Signs Pulse 52 11/01/23 09:20 Resp 14 11/01/23 09:20 BP 130/68 11/01/23 09:20 Pulse Ox 98 11/01/23 09:20 Oxygen Delivery Method Room Air 11/01/23 09:20 BMI result Body Mass Index 27.2 Assessment & Plan Assessment & Plan (1) Left hip pain: Code(s): M25.552 - Pain in left hip (2) History of total left hip arthroplasty: Comment: 03/28/18 Code(s): Z96.642 - Presence of left artificial hip joint (3) Sacroiliac joint pain: Code(s): M53.3 - Sacrococcygeal disorders, not elsewhere classified Plan: Left therapeutic sacroiliac joint injection. Informed consent was explained thoroughly to the patient. All questions about benefits and risks for the procedure were answered. Patient came to the operating room and was positioned prone on the operating table with the pillow under the pelvis. Time out was performed delineating name and of the patient, allergies and the nature of the procedure. The lower back and buttocks of the patient were prepped with ChloraPrep prepped and draped with sterile utility towels. C-arm was brought over the operating field and sq picture of patient's pelvis was demonstrated on the screen. For the left joint tilting C-arm contralateral to the site of the joint the most posterior portion of the joints was superimposed with anterior silhouette of the joint. Skin was injected in the projection of the joint slightly medial to the location of the joint with 25 gauge 1/2 inch needle using local lidocaine 2% .After that 22 gauge 3 and 1/2 inch needle was driven to the right joint in tunnel vision fashion. When needle entered the joint capsule injection of the contrast was performed demonstrating intra-articular and minimally periarticular spread of the contrast. After that 5 cc. of ropivacaine 0.5% mixed with kenalog 40 mg was injected into the joint. Upon completion of the injections the needle was removed Sterile dressing was applied. Upon completion of the injection patient was taken outside of the operating room to the recovery room where recovered uneventfully. (4) Lumbar facet arthropathy: Code(s): M47.816 - Spondylosis without myelopathy or radiculopathy, lumbar region Plan Patient presents with persistent left lateral hip pain with history of LEIF in 03/2018 and fall in 04/2021. Most recent imaging for pelvic, lumbar spine and bone scan were reviewed with patient. His back and SIJ pain is minimal today and without radicular pain. We will proceed with further evaluation of painful left hip arthroplasty s/p fall with CT scan to evaluate distal part of left hip prosthesis and left lateral area. All questions and concerns have been answered and patient agreed with the plan. Follow up for CT scan results and sooner as needed. Orders: Orders FL guidance in treatment room 11/01/23 M53.3 - Sacrococcygeal disorders, not elsewhere classified Coding Level of Care Code Procedure Only Diagnoses Left hip pain M25.552 History of total left hip arthroplasty Z96.642 Sacroiliac joint pain M53.3 Lumbar facet arthropathy M47.816
[2023-11-01 09:20] VITALS: BP 130/68; PULSE 52; RESP 14; O2SAT 98; BMI 27.2
== END 2023-11-01 08:54 | disposition home or self-care (01) ==
LOC: HO.PMCPRC 07:54
PROVIDERS: PCP Physician Assistant Medical; Visit Provider Anesthesiology
DX: M25.552 Pain in left hip (principal); Z96.642 Presence of left artificial hip joint; M53.3 Sacrococcygeal disorders, not elsewhere classified; M47.816 Spondylosis without myelopathy or radiculopathy, lumbar region
CPT/HCPCS: 27096

== ENCOUNTER 2023-12-06 09:21 | Outpatient (AMB) | payer BC, SELFPAY ==
--- NOTE | 2023-12-06 09:25 | MHC.OFFVIS ---
Intake Vital Signs 12/06/23 09:27 Height 5 ft 9 in Weight 183 lb 4 oz BMI 27.1 BP 133/66 Blood Pressure Location Rt brachial Position Sitting Pulse 67 Pulse Source Pulse Oximeter Pulse Oximetry (%) 98 Oxygen Delivery Method Room Air Intake Visit Reasons: L SIJ STEROID INJ 11/01/confirmed Intake Note: Pain today 0/10 Program Engineer Required: No Accompanied by: Self / Same As Patient Allergies No Known Allergies [No Known Allergies*] Allergy (Verified 12/06/23 09:28) HPI HPI Comments History of Present Illness Details Patient presents today to assess response to Left Therapeutic Sacroiliac Joint Injection on 11/01/[address] Steel. Patient reports 100% ongoing pain relief since procedure with significant improvement in his functioning, mobility, sleep and ADLs. Patient completed formal course of PT in August 2023 and continues to perform regular home exercise program for his low back, hip and SIJ areas and to improve his strength and flexibility. Denies fever, weight changes, abdominal or groin pain, numbness, tingling, bladder or bowel dysfunction or saddle anesthesia. Past Procedures: 11/01/23: Left Therapeutic Sacroiliac Joint Injection-100% ongoing pain relief 10/04/23: Left Diagnostic Sacroiliac Joint Injection-90% pain relief for 12 hours PRIOR: Patient is a pleasant 63 years old male with history of chronic left hip pain status post total hip arthroplasty 03/2018 and fall in April 2021 which led him in increase left lateral hip and low back pain. Patient reports he recently received left GTB injection on 08/11/23 with ongoing 60% pain relief so far. Reports left hip pain with weight bearing and prolonged walking, cannot sleep on his left side, and changing positions. Patient reports his walking capacity, mobility and ADLs are significantly affected by left hip pain. At times he feels his left leg will give out. Patient reports his back pain is chronic but is mild at the moment. He does have mild localized tenderness in the projection of left sacroiliac joint area and moderate tenderness in the lateral hip area. Denies fever, weight changes, abdominal or groin pain, numbness, tingling, bladder or bowel dysfunction or saddle anesthesia. 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 He reports minimal relief with its use and still reports lower back pain, L<R. He reports the pain radiates from the left lower back into the hip down laterally and anteriorly to the knee. He denies any numbness, tingling or bowel/bladder dysfunction. his pain is exacerbated by walking and is constantly holding his left hip and lower back outlining where his pain is the most severe. PRIOR: Clay returns to review effectiveness of the bilateral L3-L4 TFESI performed on 02/16/[address] Steel. He was unable to give me a numerical value as far as pain alleviation. He did note that previously he needed a cane to ambulate due to the pain which was slowly resolving prior to the injection and he has been able to ambulate unassisted and move freely over the past few weeks. He now has radiating back pain with associated numbness which he has had intermittently and received good relief with previous injections performed by Dr. Calzada. Of note, he did report a 20-30 minute episode of severe radiating groin pain on the left, about one week after his injection that resolved spontaneously. Previous procedures with Dr. Calzada: Left S1 TFESI 11/2015, 02/2016, 04/2016 Right C6 TFESI 11/2012 T2-T3 MICHAEL 01/2020 C7-T1 MICHAEL 05/2016 L5-S1 MICHAEL 07/2016, 08/2017, 11/2017, 07/2018 PRIOR: Clay is a pleasant 61 year old male who presents to the office with complaints of bilateral hip and low back pain. He reports a longstanding history of low back pain which was exacerbated after sustaining a fall in April. He also had a left hip replacement 4 years ago performed [address] Dr[address] Nguyen and after his fall he was evaluated at [facility] who question hardware loosening. He then was reevaluated by Dr. Nguyen who attributes his bilateral hip and low back pain to possible back pathology and sent him for a lumbar spine MRI. This report is dictated below. He reports most pain travels across the low back, into bilateral hips and occasionally radiates down the leg laterally and posteriorly to the knee. He denies any fever numbness, tingling, weakness, saddle anesthesia or bowel/bladder dysfunction. The pain is worse at night as he reports difficulty with laying on his hips. He reports pain onset was gradual, constant and rates the pain a 5-8/10. He states the pain is interfering with sleep, activities of daily living and cannot function normally. The patient reports the pain in terms of tissue damage as aching. The pain is exacerbated by prolonged walking/standing. He reports being unable to walk for more than 10-15 minutes due to pain. He does not having any alleviation with sitting or laying down. He has been using tylenol with partial relief. Clay has attempted physical therapy on two separate occasions. He states the first time he was discharged due to exacerbation of pain and the second time he discontinued due to inability to tolerate. He previously received injections with Dr Calzada in the past of both cervical and lumbar spine but he can not recall what exact procedures were performed.He is also unsure if the pain he had in the past is different from the exacerbation of pain he has had since April/fall. He briefly spoke about his right shoulder pain as well which has been present for years. He reports significant pain and stiffness upon waking up in the morning to the point where he needs to use his left hand to mobilize the RUE. He states that this stiffness resolves within an hour or so then has good ROM. 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 He is interested in scheduling a right shoudler injection after we target his back pain. He is s/p ACDF C4-C5 C5-C6 01/2017, left total hip arthroplasty 03/2018. [facility] Medical History Steroid-induced diabetes Fusion of spine, cervical region Murmur, heart Arthritis Gout Fatty liver GERD (gastroesophageal reflux disease) Shoulder joint pain High cholesterol HTN (hypertension) Surgical History Previous back surgery H/O right knee surgery Hx of elbow surgery Hx of colonoscopy History of neck surgery Status post total hip replacement, left Family History Mother Arthritis Glaucoma Father Stroke Social History Are you a primary respiratory care instructor to a significant other at home: No Do you presently have visiting nurse or other home services: No Alcohol intake: current Alcohol intake frequency: a few times a month Patient Tobacco Use Status: Former Tobacco user Quit Date: 11/2019 Tobacco use type: Cigar Years Smoked: 30 Substance Use Type: Marijuana Review of Systems Const All systems reviewed & are unremarkable except as noted in HPI and below Physical Exam Vital Signs: Last Vital Signs Pulse 67 12/06/23 09:27 BP 133/66 12/06/23 09:27 Pulse Ox 98 12/06/23 09:27 Oxygen Delivery Method Room Air 12/06/23 09:27 BMI result Body Mass Index 27.1 General: Appears afebrile. Alert and oriented. Mood and affect appropriate. Follows and participates in conversation appropriately. Respiratory effort is unlabored. No cough. Able to transition from sit to stand unassisted. Ambulates with bilaterally normal heel strike and toe off. Back/Spine/Pelvis Cervical Spine: cervical ROM normal and No Cervical spine tenderness Thoracic/Lumbar Spine: thoracic and lumbar spine normal to inspection, thoraco-lumbar ROM normal, No thoracic spinal tenderness and No lumbar spinal tenderness Pelvis: no buttock tenderness Sacroiliac joints: bilaterally nontender Results Reviewed Results Reviewed: CT HIP WITHOUT CONTRAST, LEFT 09/19/23 CLINICAL INFORMATION: Pain in left hip. COMPARISON: X-rays of the pelvis 03/08/2023. X-ray of the pelvis and hip 10/30/2021. The bone scan 03/08/2023. FINDINGS: Left total hip arthroplasty noted with components in usual position and unchanged. No periprosthetic fracture or suspicious area of lucency. The surrounding bone is normal. There is osteoarthritis of the left sacroiliac joint with bridging osteophytes present anteriorly and distally. Muscles/tendons: There is a small amount of calcification along the distal gluteus medius tendon. This could reflect calcific tendinosis/calcific tendinitis. Remaining muscles and tendons unremarkable. [id number] arterial calcification throughout compatible with calcific atherosclerotic disease. Small fat-containing left inguinal hernia. Lymph nodes normal. Neurovascular structures: Unremarkable. IMPRESSION: 1. Left total hip arthroplasty without evidence for complication by CT. 2. Osteoarthritis of the left sacroiliac joint. 3. Calcific atherosclerotic disease. 4. Small fat-containing left inguinal hernia. Assessment & Plan Assessment & Plan (1) Left hip pain: Code(s): M25.552 - Pain in left hip (2) History of total left hip arthroplasty: Comment: 03/28/18 Code(s): Z96.642 - Presence of left artificial hip joint (3) Sacroiliac joint pain: Code(s): M53.3 - Sacrococcygeal disorders, not elsewhere classified Plan Patient is status post Left Therapeutic Sacroiliac Joint Injection with 100% ongoing pain relief and improved functioning, ADLs and sleep. He completed PT and continues regular HEP to strengthen his left leg and low back for increased function, hamstring strength and flexibility in his movements. Patient is aware that he will be eligble to repeat therapeutic left SIJ injection after 01/31/24 or return to another course of PT. Patient will monitor his symptoms and notify our office when his pain returns to its baseline. All questions were answered and the patient is in agreement of plan. Follow-up as needed. Coding Level of Care Code Est Pt Level 3 (29565) Diagnoses Left hip pain M25.552 History of total left hip arthroplasty Z96.642 Sacroiliac joint pain M53.3
[2023-12-06 09:27] VITALS: BP 133/66; PULSE 67; O2SAT 98; BMI 27.1
== END 2023-12-06 09:37 | disposition home or self-care (01) ==
PROVIDERS: PCP Physician Assistant Medical; Visit Provider Nurse Practitioner Family
DX: M25.552 Pain in left hip (principal); Z96.642 Presence of left artificial hip joint; M53.3 Sacrococcygeal disorders, not elsewhere classified
CPT/HCPCS: 99213

== ENCOUNTER → 2023-12-06 09:21 | Outpatient (BNVA) | payer BC, SELFPAY | PROVIDERS: PCP Physician Assistant Medical; Visit Provider Nurse Practitioner Family ==

== ENCOUNTER 2024-04-19 13:51 | Outpatient (AMB) | payer BC, SELFPAY ==
--- NOTE | 2024-04-19 14:03 | MHC.OFFVIS ---
Intake Visit Reasons: New Prob - Left Elbow & Right Shoulder Pain Intake Note: Clay is a 63 year old right hand dominant male who presents today fora new problem visit with complaints of right shoulder and left elbow pain. Patient reports that he has had pain in the right shoulder for about 2-3 weeks now. He reports an onset of pain and weakness of the right arm. He is unable to lift the arm. The left elbow has history of lateral epicondylitis with injections, which were very helpful. Allergies No Known Allergies [No Known Allergies*] Allergy (Verified 04/19/24 14:06) HPI HPI New Prob - Left Elbow & Right Shoulder Pain: Details: Severe right shoulder pain for 2-3 weeks pain with overhead motion denies injury [facility] Medical History Steroid-induced diabetes Fusion of spine, cervical region Murmur, heart Arthritis Gout Fatty liver GERD (gastroesophageal reflux disease) Shoulder joint pain High cholesterol HTN (hypertension) Surgical History Previous back surgery H/O right knee surgery Hx of elbow surgery Hx of colonoscopy History of neck surgery Status post total hip replacement, left Family History Mother Arthritis Glaucoma Father Stroke Social History Are you a primary patient care associate to a significant other at home: No Do you presently have visiting nurse or other home services: No Alcohol intake: current Alcohol intake frequency: a few times a month Patient Tobacco Use Status: Former Tobacco user Tobacco use type: Cigar Years Smoked: 30 Substance Use Type: Marijuana Physical Exam Const General: cooperative, healthy appearing, no acute distress and well groomed Orientation/consciousness: oriented to person and oriented to place HEENT Head: Yes normal to inspection, Yes normocephalic and Yes atraumatic Eyes General: appearance normal, both eyes and all related structures Alignment and Position: alignment normal Conjunctivae: conjunctivae normal EOM: EOMs intact bilaterally Neck Neck: Yes normal visual inspection and Yes trachea midline Resp Other: No rerpiratory distress Effort & Inspection: normal respiratory effort and able to speak in complete sentences GI Other: No abdominal distension Back/Spine/Pelvis Cervical Spine: normal cervical lordosis and cervical ROM normal Skin General skin exam: no rashes or lesions noted Neuro General: oriented to person, oriented to place and gait normal Extrem Other: Full passive ROM Painw ith active abduction +H/N Neg EC Office Procedures Joint Injection/Drain Joint Injection/Drain Details: Injected 1 mL of Decadron and 3 mL 1% lidocaine and 3 mL of 0.25% Marcaine. Site was prepped using aseptic technique. Patient tolerated the procedure well. Primary Site: right shoulder Approach Used: posterolateral Coding - Large joint Procedure code (CPT) selection complete Assessment & Plan Assessment & Plan (1) Impingement syndrome of right shoulder: Code(s): M75.41 - Impingement syndrome of right shoulder Category: Medical Plan: injected right shoulder. PT. F/u 6-8 weeks Orders: Orders PT Evaluation and Treatment 04/19/24 M75.41 - Impingement syndrome of right shoulder Coding Level of Care Code Est Pt Level 3 (53202) Diagnoses Impingement syndrome of right shoulder M75.41 CPT Codes Coding - 10863 Large joint: 68229 - Large joint ([id number])
== END 2024-04-19 14:29 | disposition home or self-care (01) ==
PROVIDERS: PCP Physician Assistant Medical; Referring Provider Physician Assistant Medical; Visit Provider Orthopaedic Surgery
DX: M75.41 Impingement syndrome of right shoulder (principal)
CPT/HCPCS: 20610; 99213

== ENCOUNTER → 2024-04-19 13:51 | Outpatient (BNVA) | payer BC, SELFPAY | PROVIDERS: PCP Physician Assistant Medical; Visit Provider Orthopaedic Surgery | DX: M75.41 Impingement syndrome of right shoulder (principal) | CPT/HCPCS: 20610; J0665; J1100 ==

== ENCOUNTER 2024-05-15 06:17 | Outpatient (REF) | payer BC, SELFPAY ==
--- NOTE | ~2024-05-15 | FL_ITS ---
EXAMINATION: XR FLUOROSCOPY WITH IMAGES CLINICAL INFORMATION: Sacrococcygeal disorder. COMPARISON: None available. TECHNIQUE: Fluoroscopy Supervised By: Dr. Kenji Steel. Fluoroscopy Time: 9 seconds. Cumulative Dose: 1.9721 mGy. DAP: 0.8578 Gy-cm2. Images: 1. FINDINGS: Intraoperative fluoroscopy and spot films were performed during a procedure in the OR. A needle is seen overlying the region of the mid left SI joint with contrast media seen surrounding the needle tip. Please correlate with Dr. Kenji Steel's report for complete details. FL/FL guidance in treatment room IMPRESSION: Intraoperative fluoroscopy and spot films were obtained. Please see Dr. Kenji Steel's report for complete details.
== END 2024-05-15 06:18 | disposition home or self-care (01) ==
LOC: CF 06:17
PROVIDERS: Visit Provider Anesthesiology
DX: M53.3 Sacrococcygeal disorders, not elsewhere classified (principal); M47.816 Spondylosis without myelopathy or radiculopathy, lumbar region; Z96.642 Presence of left artificial hip joint
CPT/HCPCS: 27096; J2795; J3301; Q9967

== ENCOUNTER 2024-05-15 09:34 | Outpatient (AMB) | payer BC, SELFPAY ==
--- NOTE | 2024-05-15 09:39 | MHC.OFFVIS ---
Vital Signs 05/15/24 10:00 05/15/24 10:01 Height 5 ft 9 in 5 ft 9 in Weight 183 lb 4 oz 183 lb 4 oz BMI 27.1 27.1 BP 130/86 124/70 Blood Pressure Location Lt brachial Lt brachial Position Sitting Sitting Respiration 14 14 Pulse 56 54 Pulse Source Pulse Oximeter Pulse Oximeter Pulse Oximetry (%) 98 98 Oxygen Delivery Method Room Air Room Air Comment pre-op post-op Intake Visit Reasons: left theraputic SIJ inj Allergies No Known Allergies [No Known Allergies*] Allergy (Verified 05/15/24 10:03) PFSH Medical History Steroid-induced diabetes Fusion of spine, cervical region Murmur, heart Arthritis Gout Fatty liver GERD (gastroesophageal reflux disease) Shoulder joint pain High cholesterol HTN (hypertension) Surgical History Previous back surgery H/O right knee surgery Hx of elbow surgery Hx of colonoscopy History of neck surgery Status post total hip replacement, left Family History Mother Arthritis Glaucoma Father Stroke Social History Are you a primary healthcare recruiter to a significant other at home: No Do you presently have visiting nurse or other home services: No Alcohol intake: current Alcohol intake frequency: a few times a month Patient Tobacco Use Status: Former Tobacco user Tobacco use type: Cigar Years Smoked: 30 Substance Use Type: Marijuana Physical Exam Vital Signs: Last Vital Signs Pulse 54 05/15/24 10:01 Resp 14 05/15/24 10:01 BP 124/70 05/15/24 10:01 Pulse Ox 98 05/15/24 10:01 Oxygen Delivery Method Room Air 05/15/24 10:01 BMI result Body Mass Index 27.1 Assessment & Plan Assessment & Plan (1) Left hip pain: Code(s): M25.552 - Pain in left hip Category: Medical (2) History of total left hip arthroplasty: Comment: 03/28/18 Code(s): Z96.642 - Presence of left artificial hip joint Category: Surgical (3) Sacroiliac joint pain: Code(s): M53.3 - Sacrococcygeal disorders, not elsewhere classified Category: Medical Plan: Left therapeutic sacroiliac joint injection. Informed consent was explained thoroughly to the patient. All questions about benefits and risks for the procedure were answered. Patient came to the operating room and was positioned prone on the operating table with the pillow under the pelvis. Time out was performed delineating name and of the patient, allergies and the nature of the procedure. The lower back and buttocks of the patient were prepped with ChloraPrep prepped and draped with sterile utility towels. C-arm was brought over the operating field and sq picture of patient's pelvis was demonstrated on the screen. For the left joint tilting C-arm contralateral to the site of the joint the most posterior portion of the joints was superimposed with anterior silhouette of the joint. Skin was injected in the projection of the joint slightly medial to the location of the joint with 25 gauge 1/2 inch needle using local lidocaine 2% .After that 22 gauge 3 and 1/2 inch needle was driven to the right joint in tunnel vision fashion. When needle entered the joint capsule injection of the contrast was performed demonstrating intra-articular and minimally periarticular spread of the contrast. After that 5 cc. of ropivacaine 0.5% mixed with kenalog 40 mg was injected into the joint. Upon completion of the injections the needle was removed Sterile dressing was applied. Upon completion of the injection patient was taken outside of the operating room to the recovery room where recovered uneventfully. (4) Lumbar facet arthropathy: Code(s): M47.816 - Spondylosis without myelopathy or radiculopathy, lumbar region Category: Medical Plan Patient presents with persistent left lateral hip pain with history of LEIF in 03/2018 and fall in 04/2021. Most recent imaging for pelvic, lumbar spine and bone scan were reviewed with patient. His back and SIJ pain is minimal today and without radicular pain. We will proceed with further evaluation of painful left hip arthroplasty s/p fall with CT scan to evaluate distal part of left hip prosthesis and left lateral area. All questions and concerns have been answered and patient agreed with the plan. Follow up for CT scan results and sooner as needed. Orders: Orders FL guidance in treatment room Today M53.3 - Sacrococcygeal disorders, not elsewhere classified Coding Level of Care Code Procedure Only Diagnoses Left hip pain M25.552 History of total left hip arthroplasty Z96.642 Sacroiliac joint pain M53.3 Lumbar facet arthropathy M47.816
[2024-05-15 10:00] VITALS: BP 130/86; PULSE 56; RESP 14; O2SAT 98; BMI 27.1
[2024-05-15 10:01] VITALS: BP 124/70; PULSE 54; RESP 14; O2SAT 98; BMI 27.1
== END 2024-05-15 10:14 | disposition home or self-care (01) ==
LOC: HO.PMCPRC 09:34
PROVIDERS: PCP Physician Assistant Medical; Visit Provider Anesthesiology
DX: M25.552 Pain in left hip (principal); Z96.642 Presence of left artificial hip joint; M53.3 Sacrococcygeal disorders, not elsewhere classified; M47.816 Spondylosis without myelopathy or radiculopathy, lumbar region
CPT/HCPCS: 27096

== ENCOUNTER 2024-06-12 09:00 | Outpatient (AMB) | payer BC, SELFPAY ==
--- NOTE | 2024-06-12 08:56 | MHC.OFFVIS ---
Vital Signs 06/12/24 09:03 Height 5 ft 9 in Weight 205 lb BMI 30.3 BP 177/74 H Blood Pressure Location Rt brachial Position Sitting Pulse 51 Pulse Source Pulse Oximeter Pulse Oximetry (%) 98 Oxygen Delivery Method Room Air Intake Visit Reasons: s/p left theraputic SIJ inj Intake Note: Pain today 0/10 Spa Manager/Esthetician Required: No Accompanied by: Self / Same As Patient Allergies No Known Allergies [No Known Allergies*] Allergy (Verified 06/12/24 09:04) HPI Comments Details: Patient presents today to assess response to Left Therapeutic Sacroiliac Joint Injection on 05/15/[address] Steel. Patient reports 100% ongoing pain relief since procedure with significant improvement in his functioning, mobility, sleep and ADLs. Patient continues to perform regular home exercise program for his low back, hip and SIJ areas and to improve his strength and flexibility. Denies any fever, chills, infection, cough, weight changes, abdominal or groin pain, numbness, tingling, bladder or bowel dysfunction or saddle anesthesia. However, patient reports occasional shortness of breaths with humid weather and walking. His heart rate runs <60 for most of our past 4-5 visits. Patient denies seeing Cardiology provider and reports HTN is managed by his PCP. We will obtain 12-lead EKG today with referral to Cardiology in the setting of sinus bradycardia with intermittent dyspnea and history of mild aortic stenosis and heart murmur. Past Procedures: 05/15/24: Left Therapeutic Sacroiliac Joint Injection-100% ongoing pain relief 11/01/23: Left Therapeutic Sacroiliac Joint Injection-100% ongoing pain relief 10/04/23: Left Diagnostic Sacroiliac Joint Injection-90% pain relief for 12 hours PRIOR: Patient is a pleasant 63 years old male with history of chronic left hip pain status post total hip arthroplasty 03/2018 and fall in April 2021 which led him in increase left lateral hip and low back pain. Patient reports he recently received left GTB injection on 08/11/23 with ongoing 60% pain relief so far. Reports left hip pain with weight bearing and prolonged walking, cannot sleep on his left side, and changing positions. Patient reports his walking capacity, mobility and ADLs are significantly affected by left hip pain. At times he feels his left leg will give out. Patient reports his back pain is chronic but is mild at the moment. He does have mild localized tenderness in the projection of left sacroiliac joint area and moderate tenderness in the lateral hip area. Denies fever, weight changes, abdominal or groin pain, numbness, tingling, bladder or bowel dysfunction or saddle anesthesia. PRIOR 05/04/22 Haley Guerrero DELI ASSOCIATE: Clay returns to review effectiveness of tizanidine. He reports minimal relief with its use and still reports lower back pain, L<R. He reports the pain radiates from the left lower back into the hip down laterally and anteriorly to the knee. He denies any numbness, tingling or bowel/bladder dysfunction. his pain is exacerbated by walking and is constantly holding his left hip and lower back outlining where his pain is the most severe. PRIOR: Clay returns to review effectiveness of the bilateral L3-L4 TFESI performed on 02/16/[address] Steel. He was unable to give me a numerical value as far as pain alleviation. He did note that previously he needed a cane to ambulate due to the pain which was slowly resolving prior to the injection and he has been able to ambulate unassisted and move freely over the past few weeks. He now has radiating back pain with associated numbness which he has had intermittently and received good relief with previous injections performed by Dr. Calzada. Of note, he did report a 20-30 minute episode of severe radiating groin pain on the left, about one week after his injection that resolved spontaneously. Previous procedures with Dr. Calzada: Left S1 TFESI 11/2015, 02/2016, 04/2016 Right C6 TFESI 11/2012 T2-T3 MICHAEL 01/2020 C7-T1 MICHAEL 05/2016 L5-S1 MICHAEL 07/2016, 08/2017, 11/2017, 07/2018 PRIOR: Clay is a pleasant 61 year old male who presents to the office with complaints of bilateral hip and low back pain. He reports a longstanding history of low back pain which was exacerbated after sustaining a fall in April. He also had a left hip replacement 4 years ago performed [address] Dr[address] Nguyen and after his fall he was evaluated at [facility] who question hardware loosening. He then was reevaluated by Dr. Nguyen who attributes his bilateral hip and low back pain to possible back pathology and sent him for a lumbar spine MRI. This report is dictated below. He reports most pain travels across the low back, into bilateral hips and occasionally radiates down the leg laterally and posteriorly to the knee. He denies any fever numbness, tingling, weakness, saddle anesthesia or bowel/bladder dysfunction. The pain is worse at night as he reports difficulty with laying on his hips. He reports pain onset was gradual, constant and rates the pain a 5-8/10. He states the pain is interfering with sleep, activities of daily living and cannot function normally. The patient reports the pain in terms of tissue damage as aching. The pain is exacerbated by prolonged walking/standing. He reports being unable to walk for more than 10-15 minutes due to pain. He does not having any alleviation with sitting or laying down. He has been using tylenol with partial relief. Clay has attempted physical therapy on two separate occasions. He states the first time he was discharged due to exacerbation of pain and the second time he discontinued due to inability to tolerate. He previously received injections with Dr Calzada in the past of both cervical and lumbar spine but he can not recall what exact procedures were performed.He is also unsure if the pain he had in the past is different from the exacerbation of pain he has had since April/fall. He briefly spoke about his right shoulder pain as well which has been present for years. He reports significant pain and stiffness upon waking up in the morning to the point where he needs to use his left hand to mobilize the RUE. He states that this stiffness resolves within an hour or so then has good ROM. He previously received injections of the right shoudler with his washroom attendant with good effect. He is interested in scheduling a right shoudler injection after we target his back pain. He is s/p ACDF C4-C5 C5-C6 01/2017, left total hip arthroplasty 03/2018. COUNT INCLUDES THE [facility] Medical History Steroid-induced diabetes Fusion of spine, cervical region Murmur, heart Arthritis Gout Fatty liver GERD (gastroesophageal reflux disease) Shoulder joint pain High cholesterol HTN (hypertension) Surgical History Previous back surgery H/O right knee surgery Hx of elbow surgery Hx of colonoscopy History of neck surgery Status post total hip replacement, left Family History Mother Arthritis Glaucoma Father Stroke Social History Are you a primary residential care officer to a significant other at home: No Do you presently have visiting nurse or other home services: No Alcohol intake: current Alcohol intake frequency: a few times a month Patient Tobacco Use Status: Former Tobacco user Tobacco use type: Cigar Years Smoked: 30 Substance Use Type: Marijuana Review of Systems Const All systems reviewed & are unremarkable except as noted in HPI and below Physical Exam Vital Signs: Last Vital Signs Pulse 51 06/12/24 09:03 BP 177/74 H 06/12/24 09:03 Pulse Ox 98 06/12/24 09:03 Oxygen Delivery Method Room Air 06/12/24 09:03 BMI result Body Mass Index 30.3 General: Appears afebrile. Alert and oriented. Mood and affect appropriate. Follows and participates in conversation appropriately. Respiratory effort is unlabored. No cough. Able to transition from sit to stand unassisted. Ambulates with bilaterally normal heel strike and toe off. Resp Effort & Inspection: normal respiratory effort, able to speak in complete sentences, no cough, no respiratory distress and symmetric chest movement Cardio Jugular venous distension: no JVD Rate: regular rate and bradycardic Peripheral pulses: Peripheral pulses 2+ throughout Back/Spine/Pelvis Cervical Spine: cervical ROM normal and No Cervical spine tenderness Thoracic/Lumbar Spine: thoracic and lumbar spine normal to inspection, thoraco-lumbar ROM normal, No thoracic spinal tenderness and No lumbar spinal tenderness Pelvis: no buttock tenderness Sacroiliac joints: bilaterally nontender Extrem General: Yes capillary refill normal, Yes no clubbing, cyanosis or edema and Yes no calf tenderness Results Reviewed Results Reviewed: CT HIP WITHOUT CONTRAST, LEFT 09/19/23 CLINICAL INFORMATION: Pain in left hip. COMPARISON: X-rays of the pelvis 03/08/2023. X-ray of the pelvis and hip 10/30/2021. The bone scan 03/08/2023. FINDINGS: Left total hip arthroplasty noted with components in usual position and unchanged. No periprosthetic fracture or suspicious area of lucency. The surrounding bone is normal. There is osteoarthritis of the left sacroiliac joint with bridging osteophytes present anteriorly and distally. Muscles/tendons: There is a small amount of calcification along the distal gluteus medius tendon. This could reflect calcific tendinosis/calcific tendinitis. Remaining muscles and tendons unremarkable. [id number] arterial calcification throughout compatible with calcific atherosclerotic disease. Small fat-containing left inguinal hernia. Lymph nodes normal. Neurovascular structures: Unremarkable. IMPRESSION: 1. Left total hip arthroplasty without evidence for complication by CT. 2. Osteoarthritis of the left sacroiliac joint. 3. Calcific atherosclerotic disease. 4. Small fat-containing left inguinal hernia. Assessment & Plan Assessment & Plan (1) Sinus bradycardia: Code(s): R00.1 - Bradycardia, unspecified Category: Medical (2) Left hip pain: Code(s): M25.552 - Pain in left hip Category: Medical (3) History of total left hip arthroplasty: Comment: 03/28/18 Code(s): Z96.642 - Presence of left artificial hip joint Category: Surgical (4) Sacroiliac joint pain: Code(s): M53.3 - Sacrococcygeal disorders, not elsewhere classified Category: Medical Plan Patient is status post Left Therapeutic Sacroiliac Joint Injection with 100% ongoing pain relief and improved functioning, ADLs and sleep. We also reviewed neuromodulation with Curonix PNS trial vs implant, SI joint fusion, and SIJ RFA procedures. Patient reports at this time, therapeutic injections have been beneficial, providing him 5.5-6 month pain relief. Patient will monitor his symptoms and notify our office when his pain returns to its baseline. For HR<60 with intermittent shortness of breath with humid weather and walking. He has history of heart murmur and mild aortic stenosis. We will obtain 12-lead EKG and refer him to Cardiology for further evaluation. All questions were answered and the patient is in agreement of plan. Follow-up as needed. Orders: Orders ECG 12 lead EKG Today R00.1 - Bradycardia, unspecified Referrals Cardiology Referral I10 - Essential (primary) hypertension, I25.10 - Atherosclerotic heart disease of [place] coronary artery without angina pectoris, R00.1 - Bradycardia, unspecified Coding Level of Care Code Est Pt Level 4 (48907) Diagnoses Sinus bradycardia R00.1 Left hip pain M25.552 History of total left hip arthroplasty Z96.642 Sacroiliac joint pain M53.3
[2024-06-12 09:03] VITALS: BP 177/74; PULSE 51; O2SAT 98; BMI 30.3
== END 2024-06-12 09:21 | disposition home or self-care (01) ==
PROVIDERS: PCP Physician Assistant Medical; Visit Provider Nurse Practitioner Family
DX: R00.1 Bradycardia, unspecified (principal); M25.552 Pain in left hip; Z96.642 Presence of left artificial hip joint; M53.3 Sacrococcygeal disorders, not elsewhere classified
CPT/HCPCS: 99213

== ENCOUNTER → 2024-06-12 09:00 | Outpatient (REF) | payer BC, SELFPAY ==
--- NOTE | 2024-06-12 09:36 | ECG_ITS ---
Test Reason : BRADYCARDIA Blood Pressure : / mmHG Vent. Rate : 057 BPM Atrial Rate : 057 BPM P-R Int : 140 ms QRS Dur : 094 ms QT Int : 432 ms P-R-T Axes : 015 019 034 degrees QTc Int : 420 ms Sinus bradycardia Otherwise normal ECG When compared with ECG of 28-FEB-2018 15:37, Vent. rate has decreased BY 31 BPM Referred By: Monse Elizabeth Electronically Signed By:NIRALI SAUER
== END ==
LOC: HO.CARD 09:00
PROVIDERS: PCP Physician Assistant Medical; Visit Provider Nurse Practitioner Family
DX: R00.1 Bradycardia, unspecified (principal)
CPT/HCPCS: 93005

== ENCOUNTER → 2024-06-12 09:36 | Outpatient (BNV) | payer BC, SELFPAY | PROVIDERS: PCP Physician Assistant Medical; Visit Provider Internal Medicine | DX: R00.1 Bradycardia, unspecified (principal) | CPT/HCPCS: 93010 ==

== ENCOUNTER 2024-10-08 12:11 | Outpatient (AMB) | payer BC, SELFPAY ==
--- NOTE | 2024-10-08 12:17 | A.OFFVIS_ITS ---
Vital Signs 10/08/24 12:18 Height 5 ft 9 in Weight 205 lb BMI 30.3 Intake Visit Reasons: OV- Right Shoulder Impingement - injected 04/19/24 Intake Note: Clay is a 64 year old right hand dominant male who presents today for a follow up of his right shoulder pain. An injection was administered on 04/19/24, He reports that this injection helped for about one month. He has good days and bad days, the bad days a triggered my increased activity. He would like to discuss injections as he has concerns of continued injections. Allergies No Known Allergies [No Known Allergies*] Allergy (Verified 06/12/24 09:04) HPI HPI OV- Right Shoulder Impingement - injected 04/19/24: Details: Clay is a 64 year old right hand dominant male who presents today for a follow up of his right shoulder pain. An injection was administered on 04/19/24, He reports that this injection helped for about one month. He has good days and bad days, the bad days a triggered my increased activity. He would like to discuss injections as he has concerns of continued injections. He is seeing his web site specialist later today and would like to defer until after his cardiology appointment for possible injections. [facility] Medical History Steroid-induced diabetes Fusion of spine, cervical region Murmur, heart Arthritis Gout Fatty liver GERD (gastroesophageal reflux disease) Shoulder joint pain High cholesterol HTN (hypertension) Surgical History Previous back surgery H/O right knee surgery Hx of elbow surgery Hx of colonoscopy History of neck surgery Status post total hip replacement, left Family History Mother Arthritis Glaucoma Father Stroke Social History Are you a primary medical care evaluation specialist to a significant other at home: No Do you presently have visiting nurse or other home services: No Alcohol intake: current Alcohol intake frequency: a few times a month Patient Tobacco Use Status: Former Tobacco user Tobacco use type: Cigar Years Smoked: 30 Substance Use Type: Marijuana Physical Exam Vital Signs: BMI result Body Mass Index 30.3 Const General: cooperative, healthy appearing, no acute distress and well groomed Orientation/consciousness: oriented to person and oriented to place HEENT Head: Yes normal to inspection, Yes normocephalic and Yes atraumatic Eyes General: appearance normal, both eyes and all related structures Alignment and Position: alignment normal Conjunctivae: conjunctivae normal EOM: EOMs intact bilaterally Neck Neck: Yes normal visual inspection and Yes trachea midline Resp Other: No rerpiratory distress Effort & Inspection: normal respiratory effort and able to speak in complete sentences GI Other: No abdominal distension Back/Spine/Pelvis Cervical Spine: normal cervical lordosis and cervical ROM normal Skin General skin exam: no rashes or lesions noted Neuro General: oriented to person, oriented to place and gait normal Extrem Other: Full passive ROM Painw ith active abduction +H/N Neg EC Assessment & Plan Assessment & Plan (1) Impingement syndrome of right shoulder: Code(s): M75.41 - Impingement syndrome of right shoulder Category: Medical Plan: Continuing symptoms of impingement on the right. May consider injections and physical therapy but at this time he is not interested in either. We will let me know when he will like to proceed forward with additional treatment. Coding Level of Care Code Est Pt Level 3 (37949) Diagnoses Impingement syndrome of right shoulder M75.41
[2024-10-08 12:18] VITALS: BMI 30.3
== END 2024-10-08 13:05 | disposition home or self-care (01) ==
PROVIDERS: PCP Physician Assistant Medical; Referring Provider Physician Assistant Medical; Visit Provider Orthopaedic Surgery
DX: M75.41 Impingement syndrome of right shoulder (principal)
CPT/HCPCS: 99213

== ENCOUNTER 2025-03-25 11:12 | Outpatient (AMB) | payer BC, SELFPAY ==
--- NOTE | 2025-03-25 11:16 | A.OFFVIS_ITS ---
Intake Visit Reasons: Inj-Right Shoulder Impingement-last 04/19/24 Intake Note: Clay is a 64 year old male who presents today for a follow up of his impingement syndrome of right shoulder s/p right shoulder injection administered on 04/19/24. Patient reports that the last injection was helpful and he would like to repeat injection today Allergies No Known Allergies [No Known Allergies*] Allergy (Verified 06/12/24 09:04) HPI HPI Inj-Right Shoulder Impingement-last 04/19/24: Details: Clay is a 64 year old male who presents today for a follow up of his impingement syndrome of right shoulder s/p right shoulder injection administered on 04/19/24. Patient reports that the last injection was helpful and he would like to repeat injection today. [facility] Medical History Steroid-induced diabetes Fusion of spine, cervical region Murmur, heart Arthritis Gout Fatty liver GERD (gastroesophageal reflux disease) Shoulder joint pain High cholesterol HTN (hypertension) Surgical History Previous back surgery H/O right knee surgery Hx of elbow surgery Hx of colonoscopy History of neck surgery Status post total hip replacement, left Family History Mother Arthritis Glaucoma Father Stroke Social History Are you a primary early breastfeeding care specialist to a significant other at home: No Do you presently have visiting nurse or other home services: No Alcohol intake: current Alcohol intake frequency: a few times a month Patient Tobacco Use Status: Former Tobacco user Tobacco use type: Cigar Years Smoked: 30 Substance Use Type: Marijuana Physical Exam Const General: cooperative, healthy appearing, no acute distress and well groomed Orientation/consciousness: oriented to person and oriented to place HEENT Head: Yes normal to inspection, Yes normocephalic and Yes atraumatic Eyes General: appearance normal, both eyes and all related structures Alignment and Position: alignment normal Conjunctivae: conjunctivae normal EOM: EOMs intact bilaterally Neck Neck: Yes normal visual inspection and Yes trachea midline Resp Other: No rerpiratory distress Effort & Inspection: normal respiratory effort and able to speak in complete sentences GI Other: No abdominal distension Back/Spine/Pelvis Cervical Spine: normal cervical lordosis and cervical ROM normal Skin General skin exam: no rashes or lesions noted Neuro General: oriented to person, oriented to place and gait normal Extrem Other: Full passive ROM Painw ith active abduction +H/N Neg EC Office Procedures Joint Inj/Aspir; Non-Pain Clin Joint Injection/Drain Details: Injected 1 mL of Decadron and 3 mL 1% lidocaine and 3 mL of 0.25% Marcaine. Site was prepped using aseptic technique. Patient tolerated the procedure well. Shoulders, Hips, Knees, Shoulder Injection Large joint : Right Shoulder Coding Procedure code (CPT) selection complete Assessment & Plan Assessment & Plan (1) Impingement syndrome of right shoulder: Code(s): M75.41 - Impingement syndrome of right shoulder Category: Medical Plan: Continued symptoms of subacromial impingement/bursitis/painful arc syndrome. Pain mostly with over working it. Continued negative empty can. Injected right shoulder. Continue home exercises. Coding Level of Care Code Est Pt Level 3 (11832) Diagnoses Impingement syndrome of right shoulder M75.41 CPT Codes Shoulders, Hips, Knees, - Shoulder Injection Large joint : Right Shoulder ([id number])
--- OUTSIDE RECORDS SUMMARY | 2025-03-25 12:57 | XMS_ITS | Encounter Summary ---
Author Organization [facility] [place] [address] Care Team Providers Care Medical Esthetician Name Role Phone Osiel Kraus Primary Care Provider [phone] Reason for Referral * Consultation (Routine) - Closed Specialty Diagnoses / Procedures Referred By Nellie judd Referred To Contact Orthopedic Surgery Diagnoses Shoulder pain, unspecified chronicity, unspecified laterality Osiel Kraus PA [address] [place] [address] Phone: tel: fax: Lane Nguyen MD [address] [place] [address] [address] [place] [address] Phone: tel: fax: Referral ID Status Reason Start Date Expiration Date V isits Requested Visits Authorized [id number] Closed Specialty Services Required 03/18/2025 03/15/2026 12 12 Scheduling Instructions Diagnosis code M75.41 Reason for Visit * Reason Onset Date Comments Referral 03/15/2025 Magdalena Vazquez Encounter Details Date Type Department Care Team ([facility] st Contact Info) Description 03/15/[address] [facility] [address] [place] [address] Sujata Rojas MA Referral (Magdalena Vazquez) Social History Tobacco Use Types Packs/Day Years Used Date Smoking Tobacco: Never Passive Smoke Exposure: Never Smokeless Tobacco: Never Comments:Smokes cigars (rand om/special occassions) Alcohol Use Standard Drinks/Week Comments Yes 15 (1 standard drink = 0.6 oz pu re alcohol) Sex and Gender Information Value Date Recorded Sex Assigned at Not on file Legal Sex Male 3:52 PM EST Gender Identity Not on file Sexual Orientation Not on file documented as of this encounter Ordered Prescriptions Prescription Sig Dispense Quantity Refills Last Filled Start Date End Date naproxen (NAPROSYN) 500 mg tablet Take 1 tablet (500 mg total) by mouth 2 (two) times a day if needed for mild pain (pain). 60 tablet 5 03/18/2025 11/13/2025 documented in this encounter Progress Notes * Bradford Lewis MA - 03/18/2025 5:08 PM EDT Spoke with pt he is aware of med. * MIS He - 03/18/2025 3:58 PM EDT Okay I can send naproxen * Bradford Lewis MA - 03/18/2025 3:39 PM EDT Pt has an appointment with ortho 03/25/25, also pt wanted to know why naproxen was denied. Pt says hebeen having sinus pain, and the tylenol isn't working for him. Please review and advise. * MIS He - 03/15/2025 10:04 PM EDT Ok will [address] referral * Dawna Maddox RN - 03/15/2025 2:34 PM EDT Spoke with the pt and sees Dr. Nguyen for injections of steroid into the shoulder. Was previously schedule for an injection but had a cardiac appointment so he held off and now needsa new referral * Sujata Rojas MA - 03/15/2025 2:23 PM EDT Referral Request: What insurance does the patient have today? BCBS Referrals cannot be processed if the insurance is not accurate. If the insurance listed above in red is NO BILLING INFORMATION FOUND FOR THIS ENCOUTNER The patients correct insurance must be obtained and registered in [facility] or their referral can not be processed. Who is calling to request this referral? Faxed request If the caller is not the patient, what is their name? Ask the patient WHO referred them to this specialty: Patient self referred FIRST and LAST NAME of SPECIALIST PATIENT is seeing: Dr. Lane Ngueyn NPI #[id number] What specialty is this? ortho DIAGNOSIS Patient is being seen for (Not a body part or a procedure): M75.41 Have you seen this SPECIALIST for this PROBLEM/DX before? If YES, when? No Have you checked REVIEW or the APPT DESK to see if this referral has already been done or has visits left? yes Is this visit: Initial Visit Address of Specialist: [address] [place] [address], [address] [place] [address] Phone # of Specialist: [phone] Fax #: (if applicable): [phone] Does patient have an appointment scheduled?: yes Date of appointment- (including a retro-request): 03/25/25 Is this appointment related to: Not MVA, worker compensation, or surgery related documented in this encounter Plan of Treatment Upcoming Encounters Date Type Department Care Team (Late st Contact Info) Description 04/12/2025 8:30 AM EDT Office Visit [address] [phone] Osiel Kraus PA [address] [place] [address] 07/30/2025 8:15 AM EDT Office Visit Pulmonolgy - [place] [address] [facility] [address] [place] [phone] Nini Young MD [address] [facility] [address] [place] [address] 12/11/2025 8:00 AM EST Ancillary Procedure [facility] [address] [facility] [address] [place] [id number] Scheduled Referrals Name Type Priority Associated Diagnoses Order Schedule Ambulatory referral to Orthopedic Outpatient Referral Routine Shoulder pain, unspecified chronicity, unspecified laterality 1 Occurrences starting 03/15/2025 until 03/15/2026 documented as of this encounter Visit Diagnoses Diagnosis Shoulder pain, unspecified chronicity, unspecified laterality- Primary documented in this encounter Care Teams Medical Esthetician Relationship Specialty Start Date End Date Osiel Kraus PA [address] [place] [address] PCP - General Internal Medicine 10/08/24 documented as of this encounter
--- OUTSIDE RECORDS SUMMARY | 2025-03-25 12:57 | XMS_ITS | Clinical Summary ---
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 2 Active latanoprost (XALATAN) 0.005 % ophthalmic solution Place 1 Drop into the left eye daily. 8 Active amLODIPine (NORVASC) 10 mg tablet Take 1 tablet (10 mg total) by mouth 1 (one) time each day. 3 Active allopurinoL (ZYLOPRIM) 100 mg tablet Take 2 tablets (200 mg total) by mouth 1 (one) time each day. 3 Active acetaminophen (TYLENOL) 500 mg tablet Take 2 tablets (1,000 mg total) by mouth every 8 (eight) hours if needed. 2 Active traZODone (DESYREL) 50 mg tablet Take 1 tablet (50 mg total) by mouth at bedtime as needed for sleep. TAKE 1 TO 2 TABS BY MOUTH AT BEDTIME. 180 tablet 1 4 Active lisinopril (PRINIVIL,ZESTR IL) 40 mg tablet TAKE 1 TABLET BY MOUTH EVERY DAY 90 tablet 1 5 Active fluticasone furoate (Arnuity Ellipta) 200 mcg/actuation blister with device inhaler Inhale 1 puff by mouth 1 (one) time each day. 1 each 4 5 01/14/20 Active albuterol HFA (PROAIR HFA ; PROVENTIL HFA ; VENTOLIN HFA) 90 mcg/actuation inhaler Inhale 2 puffs by mouth every 6 (six) hours if needed for wheezing or shortness of breath. 3 each 3 5 01/15/20 26 Active atorvastatin (LIPITOR) 10 mg tablet TAKE 1 TABLET BY MOUTH EVERY DAY 90 tablet 1 5 Active hydrALAZINE (APRESOLINE) 25 mg tablet TAKE 1 TABLET BY MOUTH THREE TIMES A DAY 90 tablet 1 5 Active MELOXICAM ORAL Take by mouth. Active naproxen (NAPROSYN) 500 mg tablet Take 1 tablet (500 mg total) by mouth 2 (two) times a day if needed for mild pain (pain). 60 tablet 5 5 11/13/20 Active Active Problems Problem Noted Date Diagnosed Date Shortness of breath 10/08/2024 Assessment & Plan (01/29/2025 5:33 PM EDT): Orders: ECG 12 lead Assessment & Plan (10/29/2024 1:02 PM EST): Not likely related to his aortic stenosis. He appears compensated on exam no evidence that this is angina or reflective of an arrhythmia with EKG showing normal sinus rhythm. History would appear to suggest this is related to his chronic sinusitis. I have reached out to his PCP to consider further imaging of his sinuses. Orders: ECG 12 lead Nonrheumatic aortic valve stenosis 01/25/2022 Overview (10/29/2024): September 2022 - echocardiogram with pEF, mild to moderate . Compared to 2018 there was a mild increase in the gradient across the aortic valve with no other significant changes. Assessment & Plan (01/29/2025 5:33 PM EDT): Moderate by examination and by recent echocardiogram. Orders: ECG 12 lead Transthoracic echocardiogram (TTE) complete with PRN contrast, bubble, strain, and 3D order panel; Future Assessment & Plan (10/29/2024 1:02 PM EST): Last echocardiogram from September 2022 showed mild to moderate aortic stenosis. On exam today he has a jasmeet-shaped midsystolic murmur with clearly preserved A2. This is reflective of moderate aortic stenosis. I do not believe that this is playing into his symptoms. He appears compensated on exam. His checks x-ray was without any acute cardiopulmonary pathology. Out of an abundance of caution and given he is due for a repeat study, I have moved up his echocardiogram. 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 Sorto C4-C6 fusion 09/[address] Asher and Jesus Avascular necrosis of hip, left (CMS/HCC V24, CM S/HCC V28) 02/07/2018 Overview (08/16/2024): Eventually treated with THR 04/07 Osteoarthritis of right knee 01/09/2017 Overview (08/16/2024): Hx old injury requiring surgery.Chondrocalcinosis seen on xray 01/07 with CPPD crystals influid Osteoarthritis of toe joint 06/22/2016 Gout 02/09/2010 Overview (08/16/2024): On allopurinol since 2012 Essential hypertension, benign 07/15/2008 Assessment & Plan (01/29/2025 5:33 PM EDT): Blood pressure elevated today. Recommend careful attention to home blood pressure monitoring with results to be shared with his primary care team. He is presently on high dosages of lisinopril, amlodipine and hydralazine. If blood pressures at home are significantly elevated I would be inclined to add a diuretic such as hydrochlorothiazide or Dyazide as the next step. Orders: ECG 12 lead Assessment & Plan (10/29/2024 1:02 PM EST): Elevated today, but generally controlled. Continue with amlodipine, hydralazine and lisinopril. If his blood pressures remain elevated at home he will call let us know and we will consider adding either low-dose carvedilol or increasing hydralazine. Elevated liver enzymes 11/08/2007 Overview (08/16/2024): ? Related to beer intake Mixed hyperlipidemia 11/08/2007 Assessment & Plan (01/29/2025 5:33 PM EDT): Orders: ECG 12 lead Assessment & Plan (10/29/2024 1:02 PM EST): September 2024 - LDL 74. Continue with atorvastatin. Esophageal reflux 12/13/2005 Hemorrhage of rectum and anus 12/13/2005 Encounters Date Type Department Care Team Description 03/15/2025 Telephone Adult Medicine [address] [phone] Sujata Rojas MA Referral ([facility]) 02/27/2025 1:15 PM EDT [facility] [address] [phone] Nini Young MD Mild intermittent reactive airway disease without complication (Primary Dx); Lung nodules; PHYLLIS (obstructive sleep apnea); Mild intermittent occupational asthma without complication; Primary hypertension 01/31/2025 [facility] [address] [place] [address] Skylar Domínguez MA provider call joleen 01/29/2025 2:00 PM EDT Office Visit [facility] [address] [place] [phone] Ravi Ledesma MD Essential hypertension, benign (Primary Dx); Mixed hyperlipidemia; Nonrheumatic aortic valve stenosis; Shortness of breath 01/29/2025 8:07 AM EDT - 01/29/2025 11:59 PM EDT Hospital Encounter CT Scan - [place] [address] [place] [phone] Shortness of breath; Cough, unspecified type Discharge Disposition: Home or Self Care 01/16/2025 Telephone Pulmonol - [address] [phone] Nini Young MD Medication Problem 01/15/2025 8:30 AM EST - 01/15/2025 11:59 PM EST Hospital Encounter XRAY - [address] [phone] Shortness of breath Discharge Disposition: Home or Self Care 01/14/2025 2:30 PM EST Consult Pulmonolgy [address] [address] Nini Young MD Cough, unspecified type (Primary Dx); Shortness of breath; Upper respiratory tract infection, unspecified type; Maxillary sinusitis, unspecified chronicity; Bronchitis; Post-viral cough syndrome 01/14/2025 8:36 AM EST - 01/14/2025 11:59 PM EST Hospital Encounter CT Scan - [address] [phone] Chronic cough; Chronic frontal sinusitis; Essential hypertension, benign; Fatty liver; Gastroesophageal reflux disease, unspecified whether esophagitis present; Nonrheumatic aortic valve stenosis; Mixed hyperlipidemia; Steroid-induced diabetes mellitus, subsequent encounter ([facility] V24) Discharge Disposition: Home or Self Care 01/02/2025 8:30 AM EST Ancillary Procedure [address] [address] Car Simmons Wheeze (Primary Dx) from Last 3 Months Immunizations Name Administration Dates Next Due DTaP, Unspecified 12/16/2003 H1N1 Inj Preservative Free 10/14/2015 Influenza trivalent, with pr eservative (Fluzone; Afluria) 6mo and older 10/31/2013 Influenza, Unspecified 10/03/2018 Moderna SARS-CoV-2 COVID-19, mRNA, LNP-S, preservative free 12/01/2021,03/18/2021 Pneumococcal conjugate 20 va lent (Prevnar 20, PCV 20) 2mo and older 09/16/2023 Pneumococcal polysaccharide 23 valent (Pneumovax 23) 2yo and older 10/31/2013 Tdap Tetanus diptheria acell ular pertussis (Boostrix; Adacel) 7yo and older 05/01/2014 Surgical History Surgery Date Site/Laterality Comments OTHER SURGICAL HISTORY PROCEDURE: HISTORY OTHER; COMMENT: rt elbow lat release proceedure COLONOSCOPY 04/18/2003 PROCEDURE: HISTORICAL COLONOSCOPY; COMMENT: negative COLONOSCOPY 03/26/2014 PROCEDURE: DC COLONOSCOPY FLX DX W/COLLJ SPEC WHEN PFRMD; COMMENT: Normal examination OTHER SURGICAL HISTORY 03/28/2018 Left PROCEDURE: DC ARTHRP ACETBLR/PROX FEM PROSTC AGRFT/ALGRFT NECK SURGERY 2017 PROCEDURE: HISTORICAL NECK SURGERY; COMMENT: fusion c4-c5, c5-c6 Medical History Medical History Date Comments Elevated liver enzymes 11/08/2007 DX:Elevat ed liver enzymes Mixed hyperlipidemia 11/08/2007 DX:Mixed hy perlipidemia Esophageal reflux DX:Esophageal reflux Unspecified essential hypertension DX:Unspecified essential hypertension Osteoarthritis of right knee 01/09/2017 DX: Osteoarthritis of right knee; COMMENT: Hx old injury requiring surgery.Chondrocalcinosis seen on xray 01/07 with CPPD crystals influid Osteoarthritis of spine with radiculopathy, cervical region 05/31/2018 DX:Osteoarthritis of sp ine with radiculopathy, cervical region Osteoarthritis, hand 12/12/2019 DX:Osteoart hritis, hand Family History Medical History Relation Name Comments Autoimmune disease Neg Hx Blindness Neg Hx Breast cancer Neg Hx Cataracts Neg Hx Colon cancer Neg Hx Coronary artery disease Neg Hx Diabetes Neg Hx Glaucoma Neg Hx Heart attack Neg Hx Heart failure Neg Hx Hyperlipidemia Neg Hx Hypertension Neg Hx Macular degeneration Neg Hx Mental illness Neg Hx Prostate cancer Neg Hx Sleep apnea Neg Hx Strabismus Neg Hx Thyroid disease Neg Hx Relation Name Status Comments Brother aneurysm brain Father strokes Mother HTN cancer ? ty pe Sister Alive stroke at age 4 7 Social History Tobacco Use Types Packs/Day Years Used Date Smoking Tobacco: Never Passive Smoke Exposure: Never Smokeless Tobacco: Never Tobacco Cessation:Counseling Given: Not Answered Comments:Smokes cigars (random/special occassions) Alcohol Use Standard Drinks/Week Comments Yes 15 (1 standard drink = 0.6 oz pu re alcohol) Sex and Gender Information Value Date Recorded Sex Assigned at Not on file Legal Sex Male 3:52 PM EST Gender Identity Not on file Sexual Orientation Not on file Obstetrics History Last Filed Vital Signs Vital Sign Reading Time Taken Comments Blood Pressure 168/79 02/27/2025 1:33 PM EDT Pulse 56 02/27/2025 1:33 PM EDT Temperature 36.1 ??C (97 ??F) 02/27/2025 1:33 PM EDT Respiratory Rate 18 01/14/2025 2:38 PM EST Oxygen Saturation 99% 02/27/2025 1:33 PM EDT Inhaled Oxygen Concentration - - Weight 88.8 kg (195 lb 12.8 oz) 02/27/2025 1:33 PM EDT Height 175.3 cm (5' 9 ) 02/27/2025 1:33 PM EDT Body Mass Index 28.91 02/27/2025 1:33 PM EDT Plan of Treatment Upcoming Encounters Date Type Department Care Team (Late st Contact Info) Description 04/12/2025 8:30 AM EDT Office Visit Adult Medicine [facility] [address] [place] [address] Osiel Kraus PA [address] [place] [address] 07/30/2025 8:15 AM EDT Office Visit Pulmonolgy - [place] [facility] [address] [place] [phone] Nini Young MD 175 [facility] [address] [place] [address] 12/11/2025 8:00 AM EST Ancillary Procedure [facility] - [facility] [address] [facility] [address] [place] [address] Health Maintenance Due Date Last Done Comments Diabetes: Annual Retina Eye Exam 1968 Hepatitis A Vaccines (1 of 2 - Risk 2-dose series) 1977 Zoster Vaccines (1 of 2) 2008 Hepatitis B Vaccines (1 of 3 - Risk 3-dose series) 2018 RSV Immunization Adult Patients (1 - Risk 60-74 years 1-dose series) 2018 Depression Screening 10/30/2022 Social Influencers of Health Screening 10/30/2022 Falls Risk Assessment 2023 COVID-19 Vaccine ( season) 2024 12/01/2021, 03/18/2021, 02/18/2021 Diabetes: Blood Sugar Control Test (HGBA1C) 04/07/2025 10/08/2024, 03/16/2024, 03/16/2024 Influenza Vaccine (Season Ended) 2025 10/03/2018, 08/26/2016, 10/14/2015, Additional history exists Diabetes: Annual Foot Exam 09/25/2025 09/25/2024 Diabetes: Annual Urine Albumin-Creatinine Ratio (uACR) 10/08/2025 10/08/2024, 03/16/2024 Diabetes: Annual GFR (Glomerular Filtration Rate) 10/08/2025 10/08/2024, 03/16/2024, 11/08/2022 Hypertension/CHF/CAD Annual BMP Blood Test 10/08/2025 10/08/2024, 03/16/2024, 11/08/2022 Cholesterol Screening (Lipid Panel) 10/08/2029 10/08/2024, 03/16/2024, 03/16/2024 Colorectal Cancer Screening: Colonoscopy 07/10/2034 07/10/2024 DTaP,Tdap,and Td Vaccines (4 - Td or Tdap) 09/05/2034 09/05/2024, 05/01/2014, 12/16/2003, Additional history exists Hepatitis C Screening Completed 05/10/2017 Pneumococcal Vaccine: 50+ Years Completed 09/16/2023, 10/31/2013 HIB Vaccines Aged Out No longer eligi ble based on patient's age to complete this topic HPV Vaccines Aged Out No longer eligi ble based on patient's age to complete this topic IPV Vaccines Aged Out No longer eligi ble based on patient's age to complete this topic MMR Vaccines Aged Out No longer eligi ble based on patient's age to complete this topic Meningococcal ACWY Vaccine Aged Out N o longer eligible based on patient's age to complete this topic Meningococcal B Vaccine Aged Out No l onger eligible based on patient's age to complete this topic RSV Immunization Patients Under 20 months Aged Out No longer eligible based on patient's age to complete this topic Varicella Vaccines Aged Out No longer eligible based on patient's age to complete this topic Procedures Procedure Name Priority Date/Time Associated Diagnosis Comments ECG 12-LEAD Routine 01/29/2025 2:25 PM EDT Essential hypertension, benign Mixed hyperlipidemia Nonrheumatic aortic valve stenosis Shortness of breath CT CHEST WO CONTRAST Routine 01/29/2025 8:34 AM EDT Shortness of breath Cough, unspecified type XR CHEST 2 VIEWS Routine 01/15/2025 8:48 AM EST Shortness of breath CT SINUSES WO CONTRAST Routine 8:47 AM EST Chronic cough Chronic frontal sinusitis Essential hypertension, benign Fatty liver Gastroesophageal reflux disease, unspecified whether esophagitis present Nonrheumatic aortic valve stenosis Mixed hyperlipidemia Steroid-induced diabetes mellitus, subsequent encounter ([facility] V24) PULMONARY FUNCTION TESTING Routine 01/02/2025 9:04 AM EST Wheeze MICROALBUMIN CREATININE URINE RATIO Routine 10/08/2024 10:27 AM EST Osteoarthritis of spine with radiculopathy, cervical region Heart murmur Essential hypertension, benign Mild aortic stenosis Esophageal reflux Fatty liver Hemorrhage of rectum and anus Avascular necrosis of hip, left ([facility] V24, [facility] V28) Osteoarthritis of right knee Gout Mixed hyperlipidemia Steroid-induced diabetes ([facility] V24) COMPREHENSIVE METABOLIC PANEL Routine 10/08/2024 10:27 AM EST Osteoarthritis of spine with radiculopathy, cervical region Heart murmur Essential hypertension, benign Mild aortic stenosis Esophageal reflux Fatty liver Hemorrhage of rectum and anus Avascular necrosis of hip, left (CMS/HCC V24, CMS/HCC V28) Osteoarthritis of right knee Gout Mixed hyperlipidemia Steroid-induced diabetes (CMS/HCC V24) HEMOGLOBIN A1C Routine 10/08/2024 10:27 AM EST Osteoarthritis of spine with radiculopathy, cervical region Heart murmur Essential hypertension, benign Mild aortic stenosis Esophageal reflux Fatty liver Hemorrhage of rectum and anus Avascular necrosis of hip, left (CMS/HCC V24, CMS/HCC V28) Osteoarthritis of right knee Gout Mixed hyperlipidemia Steroid-induced diabetes (CMS/HCC V24) LIPID PANEL WITH REFLEX TO DIRECT LDL Routine 10/08/2024 10:27 AM EST Osteoarthritis of spine with radiculopathy, cervical region Heart murmur Essential hypertension, benign Mild aortic stenosis Esophageal reflux Fatty liver Hemorrhage of rectum and anus Avascular necrosis of hip, left (CMS/HCC V24, CMS/HCC V28) Osteoarthritis of right knee Gout Mixed hyperlipidemia Steroid-induced diabetes (CMS/HCC V24) COLONOSCOPY Routine 07/10/2024 HEPATITIS C SCREENING Routine 05/10/2017 from Last 3 Months or Most Recently Relevant to Health Maintenance Results * ECG 12 lead (01/29/2025 2:25 PM EDT) Ventricular Rate ECG 96 BPM GEMUSE Atrial Rate 66 BPM GEMUSE P-R Interval 152 ms GEMUSE QRS Duration 96 ms GEMUSE Q-T Interval 416 ms GEMUSE QTc 525 ms GEMUSE P Wave [place] 65 degrees GEMUSE R [place] 48 degrees GEMUSE T [place] 20 degrees GEMUSE ECG Interpretation Sinus rhythm with Premature supraventricular complexes ??and brief runs of atrial tachycardia Nonspecific ST abnormality Prolonged QT Abnormal ECG When compared with ECG of 08-OCT-2024 14:38, Premature supraventricular complexes are now Present Vent. rate has increased BY ??35 BPM QT has lengthened Confirmed by RAVI LEDESMA ([id number]) on 01/29/2025 3:03:32 PM GEMUSE 01/29/2025 2:25 PM EDT 01/29/2025 3:03 PM EDT us Ravi Ledesma MD ECG ORDERABLES Final Result GEMUSE * CT Chest wo Contrast (01/29/2025 8:34 AM EDT) Anatomical Region Laterality Modality Body Computed Tomogra phy 01/29/2025 6:50 PM EDT Impressions 01/29/2025 6:57 PM EDT No acute findings. No CT evidence of interstitial lung disease. -------- FINAL REPORT -------- Dictated By: Naomie Hooks Dictated Date: 01/29/2025 18:50 ET Assigned Physician: Naomie Hooks Reviewed and Electronically Signed By: Naomie Hooks Signed Date: 01/29/2025 18:57 ET Workstation ID: [id number] Transcribed By: Self Edit Transcribed Date: 01/29/2025 18:50 ET Narrative 01/29/2025 6:[address] CHEST WO CONTRAST HISTORY: Interstitial lung disease. TECHNIQUE: Multiple axial images are obtained from the thoracic inlet through the upper abdomen. COMPARISON: CT chest 12/10/2022. FINDINGS: ?? 2 mm juxtapleural nodule right upper lobe on image 87 is unchanged. The lungs are otherwise clear.. There is no pleural effusion, infiltrate, pneumothorax, cardiomegaly, or pericardial effusion. There is calcification of the coronary arteries. There is atherosclerosis of the thoracic aorta and visualized abdominal aorta. No lymphadenopathy is seen. The partially visualized upper abdominal organs are unremarkable. No suspicious bone lesions seen. There are bridging osteophytes of the spine. There is mild compression of the L1 vertebral body, unchanged from CT abdomen pelvis of 11/12/2022. Procedure Note Naomie Hooks MD - 01/29/2025 CT CHEST WO CONTRAST HISTORY: Interstitial lung disease. TECHNIQUE: Multiple axial images are obtained from the thoracic inletthrough the upper abdomen. COMPARISON: CT chest 12/10/2022. FINDINGS: 2 mm juxtapleural nodule right upper lobe on image 87 is unchanged. Thelungs are otherwise clear.. There is no pleural effusion, infiltrate, pneumothorax, cardiomegaly, orpericardial effusion. There is calcification of the coronary arteries. There is atherosclerosisof the thoracic aorta and visualized abdominal aorta. No lymphadenopathy is seen. The partially visualized upper abdominal organs are unremarkable. No suspicious bone lesions seen. There are bridging osteophytes of thespine. There is mild compression of the L1 vertebral body, unchanged fromCT abdomen pelvis of 11/12/2022. IMPRESSION: No acute findings. No CT evidence of interstitial lung disease. -------- FINAL REPORT -------- Dictated By: Naomie Hooks Dictated Date: 01/29/2025 18:50 ET Assigned Physician: Naomie Hooks Reviewed and Electronically Signed By: Naomie Hooks Signed Date: 01/29/2025 18:57 ET Workstation ID: [id number] Transcribed By: Self Edit Transcribed Date: 01/29/2025 18:50 ET Nini Young MD IMG CT PROCEDURES Final Result * XR Chest 2 Views (01/15/2025 8:48 AM EST) Anatomical Region Laterality Modality Body Radiographic Cristy ging 01/15/2025 8:49 AM EST Impressions 01/15/2025 8:51 AM EST No acute pulmonary pathology. -------- FINAL REPORT -------- Dictated By: Noamie Hooks Dictated Date: 01/15/2025 08:49 ET Assigned Physician: Naomie Hooks Reviewed and Electronically Signed By: Naomie Hooks Signed Date: 01/15/2025 08:51 ET Workstation ID: [id number] Transcribed By: Self Edit Transcribed Date: 01/15/2025 08:49 ET Narrative 01/15/2025 8:51 AM EST CHEST, TWO VIEWS HISTORY: ??Dyspnea . TECHNIQUE: Frontal and lateral views of the chest. PRIOR: Chest x-ray 11/09/2024. FINDINGS: The lungs are clear. No pleural effusion is seen. No pneumothorax is seen. The cardiac diameter is within normal limits. No acute or aggressive appearing bony abnormalities are seen. ??There are bridging osteophytes of the spine. Procedure Note Naomie Hooks MD - 01/15/2025 CHEST, TWO VIEWS HISTORY: Dyspnea . TECHNIQUE: Frontal and lateral views of the chest. PRIOR: Chest x-ray 11/09/2024. FINDINGS: The lungs are clear. No pleural effusion is seen. No pneumothorax is seen. The cardiac diameter is within normal limits. No acute or aggressive appearing bony abnormalities are seen. There arebridging osteophytes of the spine. IMPRESSION: No acute pulmonary pathology. -------- FINAL REPORT -------- Dictated By: Naomie Hooks Dictated Date: 01/15/2025 08:49 ET Assigned Physician: Naomie Hooks Reviewed and Electronically Signed By: Naomie Hooks Signed Date: 01/15/2025 08:51 ET Workstation ID: [id number] Transcribed By: Self Edit Transcribed Date: 01/15/2025 08:49 ET [facility] Sathish Young MD IMG XR PROCEDURES Final Result * CT Sinuses wo Contrast (01/14/2025 8:47 AM EST) Anatomical Region Laterality Modality Head and Neck Computed Tomogra phy 01/14/2025 9:48 AM EST Impressions 01/14/2025 9:57 AM EST Moderate to severe inflammatory changes of the paranasal sinuses, with near complete obliteration of the left maxillary sinus. -------- FINAL REPORT -------- Dictated By: Julian Archuleta Dictated Date: 01/14/2025 09:48 ET Assigned Physician: Julian Archuleta Reviewed and Electronically Signed By: Julian Archuleta Signed Date: 01/14/2025 09:57 ET Workstation ID: [id number] Transcribed By: Self Edit Transcribed Date: 01/14/2025 09:48 ET Narrative 01/14/2025 9:[address] SINUSES WO CONTRAST TECHNIQUE: Multidetector-row CT of the sinuses was performed without intravenous contrast. Images were reconstructed in the axial, coronal, and sagittal planes. Comparison: No prior pertinent images. FINDINGS: Streak artifacts from patient's earrings limits local evaluation. Frontal sinuses and frontoethmoidal junctions: Mild mucosal thickening Ethmoid air cells: Moderate degree of mucosal thickening, more pronounced in the anterior ethmoid air cells. Maxillary sinuses and infundibula: Near complete obliteration of the left maxillary sinus, associated with obliteration of the ipsilateral maxillary infundibulum. ??Moderate mucosal thickening of the right maxillary sinus associated with bubbly secretion. ??Moderate mucosal thickening resulting in narrowing of the right maxillary infundibulum. Sphenoid sinuses: Moderate mucosal thickening. Mastoid air cells and middle ear cavities: Clear. Others: Temporomandibular joints are intact. ??No gross abnormality of the brain. Procedure Note Julian Archuleta MD - 01/14/2025 CT SINUSES WO CONTRAST TECHNIQUE: Multidetector-row CT of the sinuses was performed withoutintravenous contrast. Images were reconstructed in the axial, coronal, andsagittal planes. Comparison: No prior pertinent images. FINDINGS: Streak artifacts from patient's earrings limits local evaluation. Frontal sinuses and frontoethmoidal junctions: Mild mucosal thickening Ethmoid air cells: Moderate degree of mucosal thickening, more pronouncedin the anterior ethmoid air cells. Maxillary sinuses and infundibula: Near complete obliteration of the leftmaxillary sinus, associated with obliteration of the ipsilateral maxillaryinfundibulum. Moderate mucosal thickening of the right maxillary sinusassociated with bubbly secretion. Moderate mucosal thickening resultingin narrowing of the right maxillary infundibulum. Sphenoid sinuses: Moderate mucosal thickening. Mastoid air cells and middle ear cavities: Clear. Others: Temporomandibular joints are intact. No gross abnormality of thebrain. IMPRESSION: Moderate to severe inflammatory changes of the paranasal sinuses, withnear complete obliteration of the left maxillary sinus. -------- FINAL REPORT -------- Dictated By: Julian Archuleta Dictated Date: 01/14/2025 09:48 ET Assigned Physician: Julian Archuleta Reviewed and Electronically Signed By: Julian Archuleta Signed Date: 01/14/2025 09:57 ET Workstation ID: [id number] Transcribed By: Self Edit Transcribed Date: 01/14/2025 09:48 ET Osiel ABEBE IMG CT PROCEDURES Final R esult * Pulmonary function testing: Spirometry with Bronchodilator (01/02/2025 9:04 AM EST) Impressions Shree Moore MD - 01/02/2025 9:04 AM EST DATE OF SERVICE: 01/02/25 SPIROMETRY: FEV1 is 78 % predicted and an FVC ??is 76 % predicted. The FEV1/FVC ratio is 103% of normal, significant response to bronchodilators noted. LUNG VOLUMES: Total lung capacity (TLC): 88% predicted. Residual volume (RV): 109% predicted RV/TLC ratio is 112% of normal DIFFUSION CAPACITY: DLCO 100% predicted. DlCO/VA 108% of predicted COMPARISONS: INTERPRETATION: This pulmonary function test shows reactive airway disease consistent with asthma. ??The patient spirometry and diffusion capacity is normal ??Shree Moore MD ?? Osiel ABEBE PFT ORDERABLES Final Res ult * Lipid panel with reflex to direct LDL (10/08/2024 10:27 AM EST) Cholesterol 155 0 - 200 mg/dL LAB CHEMISTRY METHOD 10/08/2024 5:25 PM [facility] Triglycerides 136 0 - 150 mg/dL LAB CHEMISTRY METHOD 10/08/2024 5:25 PM [facility] HDL 54 >=40 mg/dL LAB CHEMISTRY METHOD 10/08/2024 5:25 PM [facility] LDL Calculated 74 0 - 100 mg/dL LAB CHEMISTRY METHOD 10/08/2024 5:25 PM [facility] VLDL Cholesterol Stephan 27.2 mg/dL LAB CHEMISTRY METHOD 10/08/2024 5:25 PM [facility] Non HDL Chol. (LDL+VLDL) 101 <145 mg/dL LAB CHEMISTRY METHOD 10/08/2024 5:25 PM [facility] Chol/HDL Ratio 2.9 0.0 - 4.4 LAB CHEMISTRY METHOD 10/08/2024 5:25 PM [facility] Blood Venous blood specimen / Unknown Venipuncture / Unknown 10/08/2024 10:27 AM EST 10/08/2024 10:27 AM EST Osiel ABEBE LAB BLOOD ORDERABLES Chelly l Result [facility] [address] [place] [address], [place] [phone] * (ABNORMAL) Microalbumin creatinine urine ratio (10/08/2024 10:27 AM EST) Creatinine, Urine 180.0 mg/dL LAB CHEMISTRY METHOD 10/08/2024 5:14 PM [facility] Microalb, Ur 50.2(H) 0.0 - 29.0 mg/L LAB CHEMISTRY METHOD 10/08/2024 5:14 PM [facility] Microalb/Crea t Ratio 28 <30 mg/g creat LAB CHEMISTRY METHOD 10/08/2024 5:14 PM [facility] Urine Urine specimen obtained by clean catch procedure / Unknown Non-blood Collection / Unknown 10/08/2024 10:27 AM EST 10/08/2024 10:27 AM EST Osiel ABEBE LAB URINE ORDERABLES Chelly l Result [facility] [address] [place] [address], [place] [phone] * Hemoglobin A1c (10/08/2024 10:27 AM EST) Hemoglobin A1C 5.5 <6.5 % LAB CHEMISTRY METHOD 10/09/2024 3:[address] [facility] Mean Bld Glu Estim. 111 mg/dL LAB CHEMISTRY METHOD 10/09/2024 3:03 PM [facility] Blood Venous blood specimen / Unknown Venipuncture / Unknown 10/08/2024 10:27 AM EST 10/08/2024 10:27 AM EST Osiel ABEBE LAB BLOOD ORDERABLES Chelly grimes Result [facility] [address] [place] [address], [place] [phone] * (ABNORMAL) Comprehensive metabolic panel (10/08/2024 10:27 AM EST) Sodium 139 133 - 145 mmol/L LAB CHEMISTRY METHOD 10/08/2024 5:25 PM [facility] Potassium 4.2 3.5 - 5.5 mmol/L LAB CHEMISTRY METHOD 10/08/2024 5:25 PM [facility] Chloride 107 96 - 110 mmol/L LAB CHEMISTRY METHOD 10/08/2024 5:25 PM [facility] CO2 25 21 - 32 mmol/L LAB CHEMISTRY METHOD 10/08/2024 5:25 PM [facility] Anion Gap 7 3 - 11 LAB CHEMISTRY METHOD 10/08/2024 5:25 PM [facility] Glucose 137(H) 70 - 100 mg/dL LAB CHEMISTRY METHOD 10/08/2024 5:25 PM [facility] BUN 11 5 - 25 mg/dL LAB CHEMISTRY METHOD 10/08/2024 5:25 PM [facility] Creatinine 0.92 0.70 - 1.30 mg/dL LAB CHEMISTRY METHOD 10/08/2024 5:25 PM [facility] eGFR 92 >=60 mL/min/1. 73m2 LAB CHEMISTRY METHOD 10/08/2024 5:25 PM [facility] Comment:Calculation based on the??Chronic Kidney Disease Epidemiology Collaboration (CKD-EPI) equation refit??without adjustment for race. BUN/Creatinine Ratio 12.0 LAB CHEMISTRY METHOD 10/08/2024 5:25 PM [facility] Calcium 9.7 8.5 - 10.5 mg/dL LAB CHEMISTRY METHOD 10/08/2024 5:25 PM [facility] AST (SGOT) 23 10 - 42 unit/L LAB CHEMISTRY METHOD 10/08/2024 5:25 PM [facility] ALT (SGPT) 78(H) 10 - 60 unit/L LAB CHEMISTRY METHOD 10/08/2024 5:25 PM [facility] Alkaline Phosphatase 121 42 - 121 unit/L LAB CHEMISTRY METHOD 10/08/2024 5:25 PM [facility] Total Protein 7.3 6.0 - 8.0 g/dL LAB CHEMISTRY METHOD 10/08/2024 5:25 PM [facility] Albumin 4.5 3.2 - 5.0 g/dL LAB CHEMISTRY METHOD 10/08/2024 5:25 PM [facility] Total Bilirubin 0.6 0.0 - 1.4 mg/dL LAB CHEMISTRY METHOD 10/08/2024 5:25 PM [facility] Blood Venous blood specimen / Unknown Venipuncture / Unknown 10/08/2024 10:27 AM EST 10/08/2024 10:27 AM EST Osiel ABEBE LAB BLOOD ORDERABLES Chelly l Result [facility] [address] [place] [address], * Colonoscopy (07/10/2024) Colonoscopy abstracted, no interpretation Anatomical Region Laterality Modality Other Historical Provider HEALTH MAINTENANCE Final Result * Hepatitis C Screening (05/10/2017) Hepatitis C Screening abstracted us Historical Provider HEALTH MAINTENANCE Final Result from Last 3 Months or Most Recently Relevant to Health Maintenance Insurance [facility] [place] MEDICARE Care Teams Cooler Conveyor Loader Relationship Specialty Start Date End Date Osiel Kraus PA [address] [place] [id number] PCP - General Internal Medicine 10/08/24
--- OUTSIDE RECORDS SUMMARY | 2025-03-25 12:57 | XMS_ITS | Clinical Summary ---
Author Organization [facility] Facility Address [address] [place] [id number] Care Team Providers Care Bleacher Operator Name Role Phone Sherri Fitzgerald Primary Care Provider Unavailabl e Allergies No known active allergies Medications amLODIPine (NORVASC) 10 MG tablet Take 10 mg by mouth 1 (one) time each day Active allopurinol (ZYLOPRIM) 100 MG tablet Take 100 mg by mouth 1 (one) time each day Active hydrALAZINE (APRESOLINE) 10 MG tablet Take 20 mg by mouth in the morning and 20 mg in the evening. Active lisinopril 40 MG tablet Take 40 mg by mouth 1 (one) time each day Active atorvastatin (LIPITOR) 10 MG tablet Take 10 mg by mouth every night Active omeprazole (PriLOSEC) [address] capsule Take 20 mg by mouth 1 (one) time each day Do not crush or chew. Active traZODone (DESYREL) 50 MG tablet Take 50 mg by mouth every night Active latanoprost (XALATAN) 0.005 % ophthalmic solution Administer 1 drop into the left eye every night Active acetaminophen (TYLENOL) 500 MG tablet Take 1,000 mg by mouth every 8 (eight) hours if needed for mild pain Active Active Problems Problem Noted Date Diagnosed Date Hypertension 01/27/2023 Social History Tobacco Use Types Packs/Day Years Used Date Smoking Tobacco: Former Cigarettes 0 08/14/1988 - 11/21/2021 Smokeless Tobacco: Never Tobacco Cessation:Counseling Given: Not Answered Alcohol Use Standard Drinks/Week Comments Yes 0 (1 standard drink = 0.6 oz pur e alcohol) Sex and Gender Information Value Date Recorded Sex Assigned at Not on file Legal Sex Male 10:44 AM EST Gender Identity Not on file Sexual Orientation Not on file Last Filed Vital Signs Vital Sign Reading Time Taken Comments Blood Pressure 138/70 01/27/2023 11:11 AM EST Pulse 70 01/27/2023 11:11 AM EST Temperature - - Respiratory Rate - - Oxygen Saturation 97% 01/27/2023 11: 11 AM EST Inhaled Oxygen Concentration - - Weight 83.4 kg (183 lb 12.8 oz) 023 11:11 AM EST Height 175.3 cm (5' 9 ) 01/27/2023 11:1 1 AM EST Body Mass Index 27.14 01/27/2023 11:11 AM EST Plan of Treatment Health Maintenance Due Date Last Done Comments Colorectal Cancer Screening: Annual FOBT 2007 Colorectal Cancer Screening: Colonoscopy 2007 Colorectal Cancer Screening: Sigmoidoscopy 2007 Pneumococcal Vaccine: 50+ Ye ars (2 of 2 - PCV) 10/31/2014 10/31/2013 Hepatitis B Vaccine (1 of 3 - Risk 3-dose series) 2018 Diabetes: Hemoglobin A1C 01/27/2023 09/13/2022 Diabetes: Ophthalmology Exam 01/27/2023, 01/27/2010, 01/17/2008 Diabetes: Pedal Pulse Checked 01/27/2023 Diabetes: Sensory Foot Exam 01/27/2023 Diabetes: Visual Foot Exam 01/27/2023 Influenza Vaccine (Season Ended) 2025 Pneumococcal Vaccine: Peds ( 0 to 5 Years) and At-Risk Patients (6 to 49 Years) Discontinued 10/31/2013 Procedures Procedure Name Priority Date/Time Associated Diagnosis Comments EXT RESULT ENTRY Routine 09/13/2022 from Last 3 Months or Most Recently Relevant to Health Maintenance Results * (ABNORMAL) EXT RESULT ENTRY (09/13/2022) Sodium 141 137 - 147 Potassium 4.2 3.4 - 5.5 Chloride 104.0(A) 99.0 - 108.0 Carbon Dioxide 30 mmol/L Glucose 104 60 - 200 BUN 14 4 - 21 mg/dL Creatinine 0.92 0.60 - 1.30 mg/dL Total Protein 7.8 6.4 - 8.2 G/DL Albumin 4.7 3.5 - 5.0 g/dL Calcium 9.9 8.7 - 10.7 mg/dL eGFR Non-Afr Citizen Of [place] 93 Total Bilirubin 0.4 MG/DL ALT (SGPT) 99 U/L AST (SGOT) 44 U/L Alkaline Phosphatase 105 U/L Hemoglobin A1C 5.8 4.0 - 6.0 Triglycerides 100 Cholesterol, Total 152 HDL 68 mg/dL LDL-Calculated 64 09/13/2022 us Historical Provider LAB BLOOD ORDERABLES Chelly l Result from Last 3 Months or Most Recently Relevant to Health Maintenance Insurance Care Teams Bleacher Operator Relationship Specialty Start Date End Date Sherri Fitzgerald PCP - General 11/09/22
--- OUTSIDE RECORDS SUMMARY | 2025-03-25 12:57 | XMS_ITS | Data Portability ---
Author Organization [facility] [address] Address [address] [place] [address] Care Team Providers Care Weight And Balance Control Agent Name Role Phone GRIS MALDONADO Primary Care Provider Assessment No assessment recorded. Plan of Treatment Reminders Order Date Submit Date Provider Last Modified By Organization Details Last Modified Time Details Appointments None recorded. Lab rapid SARS CoV 2 Ag, QL IA, respiratory specimen 2021 [place] [address] [address], [address] [place] [address], [phone], 2 10:46:36 rapid flu (A+B) 2021 [facility] _[facility], [address] [place] [address], [address], 2 10:46:36 urinalysis, dipstick 2021 [place] [address] [place] [address], [address] [place] [address], [phone], 2 11:41:18 Referral None recorded. Procedures None recorded. Surgeries None recorded. Imaging XR, chest, 2 view 2021 [email or web address], [address] [place], [address], 11:45:31 Medication Orders None recorded. Patient TargetsNo targets recorded. Patient Instructions Encounter Date Encounter Id Patient Instructions Last Modified By Organization Details Last Modified Time 11/07/2022 [id number] Fever: Care Instructions Not available 11/07/2022 10:46:36 So as we discussed your symptoms are certainly concerning for an infectious or other process going on though we have been unable to identify a reason or souce here with our testing. You need further work up however which will likely involve blood work and imaging. Please call your PCP office back tomorrow to set up an appointment for this. If you are worsening however or have new or troubling symptoms please proceed to an emergency room. Good luck Not available 11/07/2022 11:41:18 Reason for Referral None Reported. Results Created Date Observation Date Name Description Value Unit Range Abnormal Flag Note LastModifiedBy Organization Detail LastModifiedTime 11/07/20 22 11/07/2022 urina lysis , dipst ick Unknown Analyte Dark Yellow Not Available _andrew coles [address] [place], [address], 11/07/2022 10:48:13 11/07/20 22 11/07/2022 urina lysis , dipst ick Unknown Analyte Clear Not Available _ sondra [address] [place], [address], 11/07/2022 10:48:13 11/07/20 22 11/07/2022 urina lysis , dipst ick Unknown Analyte Negati ve Not Available _andrew coles [address] [place], [address], 11/07/2022 10:48:13 11/07/20 22 11/07/2022 urina lysis , dipst ick Unknown Analyte Small Not Available [address] [place], [address], 11/07/2022 10:48:13 11/07/20 22 11/07/2022 urina lysis , dipst ick Unknown Analyte Trace Not Available [address] [place], [address], 11/07/2022 10:48:13 11/07/20 22 11/07/2022 urina lysis , dipst ick Unknown Analyte 1.030 Not Available [facility] [address] [place] [address], [place], [address], 11/07/2022 10:48:13 11/07/20 22 11/07/2022 urina lysis , dipst ick Unknown Analyte Negati ve Not Available [facility] [address] [place] [address], [place], [address], 11/07/2022 10:48:13 11/07/20 22 11/07/2022 urina lysis , dipst ick Unknown Analyte 5.0 Not Available [facility] [address], [place], [address], 11/07/2022 10:48:13 11/07/20 22 11/07/2022 urina lysis , dipst ick Unknown Analyte 30 mg/dL Not Available andrew pe [address], [place], [address], 11/07/2022 10:48:13 11/07/20 22 11/07/2022 urina lysis , dipst ick Unknown Analyte 0.2 E.U./d L Not Available [facility], [place], [address], 11/07/2022 10:48:13 11/07/20 22 11/07/2022 urina lysis , dipst ick Unknown Analyte Negati ve Not Available [facility] [address] [place] [address], [place], [address], 11/07/2022 10:48:13 11/07/20 22 11/07/2022 urina lysis , dipst ick Unknown Analyte Negati ve Not Available andrew coles [address], [place], [address], 11/07/2022 10:48:13 11/07/20 22 11/07/2022 urina lysis , dipst ick Unknown Analyte Normal = Negati ve Not Available andrew coles [address], [place], [address], 11/07/2022 10:48:13 11/07/20 22 11/07/2022 urina lysis , dipst ick Unknown Analyte Normal = Negati ve Not Available andrew coles [address], [place], [address], 11/07/2022 10:48:13 11/07/20 22 11/07/2022 urina lysis , dipst ick Unknown Analyte Normal = 0.2, 1.0 Not Available andrew coles [address], [place], [address], 11/07/2022 10:48:13 11/07/20 22 11/07/2022 urina lysis , dipst ick Unknown Analyte Normal = Negati ve Not Available andrew coles [address], [place], [address], 11/07/2022 10:48:13 11/07/20 22 11/07/2022 urina lysis , dipst ick Unknown Analyte Normal = 6.5, 7.0, 7.5, 8.0 Not Available andrew coles [address], [place], [address], 11/07/2022 10:48:13 11/07/20 22 11/07/2022 urina lysis , dipst ick Unknown Analyte Normal = Negati ve Not Available andrew coles [address], [place], [address], 11/07/2022 10:48:13 11/07/20 22 11/07/2022 urina lysis , dipst ick Unknown Analyte Normal = 1.010, 1.015, 1.020 Not Available [address], [place], [address], 11/07/2022 10:48:13 11/07/20 22 11/07/2022 urina lysis , dipst ick Unknown Analyte Normal = Negati ve Not Available [address], [place], [address], 11/07/2022 10:48:13 11/07/20 22 11/07/2022 urina lysis , dipst ick Unknown Analyte Normal = Negati ve Not Available [address] [place] [address], [place], [address], 11/07/2022 10:48:13 11/07/20 22 11/07/2022 urina lysis , dipst ick Unknown Analyte Normal = negati ve Not Available [address], [place], [address], 11/07/2022 10:48:13 11/07/20 22 11/07/2022 urina lysis , dipst ick Unknown Analyte Normal = clear Not Available [address] [place] [address], [place], [address], 11/07/2022 10:48:13 11/07/20 22 11/07/2022 urina lysis , dipst ick Unknown Analyte Normal = light yellow Not Available [facility] [address], [place], [address], 11/07/2022 10:48:13 11/07/20 22 11/07/2022 rapid SARS CoV 2 Ag, QL IA, respi rator y speci men Unknown Analyte Normal =Negat cathryn Not Available [address] [place] [address], [place], [address], 11/07/2022 10:15:44 11/07/20 22 11/07/2022 rapid SARS CoV 2 Ag, QL IA, respi rator y speci men Unknown Analyte negati ve Not Available [address] [place] [address], [place], [address], 11/07/2022 10:15:44 11/07/20 22 11/07/2022 rapid flu (A+B) Unknown Analyte Normal = Negati ve Not Available [address] [place] [address], [place], [address], 11/07/2022 10:15:50 11/07/20 22 11/07/2022 rapid flu (A+B) Unknown Analyte Normal = Negati ve Not Available [address] [place] [address], [place], [address], 11/07/2022 10:15:50 11/07/20 22 11/07/2022 rapid flu (A+B) Unknown Analyte negati ve Not Available [address] [place] [address], [place], [address], 11/07/2022 10:15:50 11/07/20 22 11/07/2022 rapid flu (A+B) Unknown Analyte negati ve Not Available [address] [place] [address], [place], [address], 11/07/2022 10:15:50 11/07/20 22 11/07/2022 XR, chest , 2 view No observ ation record ed. [email or web address] [address] [place], [address], 11/07/2022 20:49:19 Result Notes None recorded. Problems Name Problem SNOMED Code Status Onset Date Resolution Date Notes Provider Name and Address Organization Details Recorded Time Hypertensive disorder 58288072 Active 2021 Ana Barrios null, [place] - [facility] 2 10:14:12 Hyperlipidemia 47220567 Active 2021 Anadylon Barrios null, PA - [facility] 2 10:14:22 Anxiety 69185377 Active 2021 Anakojo Barrios null, PA - [facility] 2 10:14:33 Problem Notes None recorded. Procedures Surgical History Date Name Laterality Status Provider Name and Address Organization Details Recorded Time total replacement of hip completed Anadylon Barrios PA - [facility] 11/07/2022 10:15:27 operative procedure on knee completed Ana Barrios PA - [facility] 11/07/2022 10:15:37 Imaging Results Imaging Date Name Status LastModified by Organiz ation Details LastModified Time 11/07/2022 XR, chest, 2 view completed [email or web address] [address] [place] [address], [place], [address], 11/07/2022 20:49:19 Procedure Notes None recorded. Medical Equipment None Reported. Allergies No known drug allergies Medications Name Sig Start Date Stop Date Status Note LastModified by Organization Details LastModified Time latanoprost 0.005 % eye drops INSTILL 1 DROP INTO BOTH EYES EVERY DAY AT NIGHT active Not Available Not Available No t Available hydralazine 10 mg tablet TAKE 2 TABLETS BY MOUTH TWICE A DAY active Not Available Not Available No t Available tizanidine 2 mg tablet TAKE 1 TABLET TWICE A DAY NEEDED FOR MUSCLE SPASMS active Not Available Not Available No t Available trazodone 50 mg tablet TAKE 1 TO 2 TABS BY MOUTH AT BEDTIME. active Not Available Not Available No t Available atorvastatin 10 mg tablet TAKE 1 TABLET BY MOUTH EVERYDAY AT BEDTIME active Not Available Not Available N ot Available amlodipine 5 mg tablet TAKE 1 TABLET BY MOUTH EVERY DAY active Not Available Not Available No t Available allopurinol 100 mg tablet TAKE 2 TABLETS BY MOUTH DAILY active Not Available Not Available No t Available acetaminophen 500 mg tablet TAKE 2 TABLETS BY MOUTH EVERY 8 HOURS NEEDED FOR PAIN active Not Available Not Available No t Available spironolacton e 25 mg tablet TAKE 1 TABLET BY MOUTH EVERY DAY active Not Available Not Available No t Available amlodipine 10 mg tablet TAKE 1 TABLET BY MOUTH EVERY DAY active Not Available Not Available No t Available lisinopril 40 mg tablet TAKE 1 TABLET BY MOUTH EVERY DAY active Not Available Not Available No t Available loratadine 10 mg tablet TAKE 1 TABLET (ORAL) 1 TIME PER DAY FOR ALLERGY SYMPTOMS OR ITCHING active Not Available Not Available N ot Available diclofenac 1 % topical gel APPLY 4 GRAMS TOPICALLY 2 TIMES DAILY. active Not Available Not Available No t Available Vitals Date Recorded Body height Body mass index (BMI) Body weight Oxygen saturation Oxygen saturation in Arterial blood by Pulse oximetry Heart rate Respiratory rate Body temperature Systolic blood pressure Diastolic blood pressure Provider Name and Address Organization Details Last Updated DateTime 2 175.26 cm 27 kg/m2 59852.4 g 95 % 95 % 90 /min 28 /min 98.3 [degF] 135 mm[Hg] 70 mm[Hg] Ana Barrios PA [facility] 2 10:13:16 Social History Question Answer Notes LastModified by Delphi ion Details LastModified Time Tobacco Smoking Status Never Smoker Aan foreman PA [facility] 11/07/2022 10:15:07 What Is Your Level Of Alcohol Consumption? Heavy Information not available 11/07/2022 How Many Times Per Week Do You Consume Alcohol? 5-7 Times Per Week Information not available 11/07/2022 Which Illicit Or Recreational Drugs Have You Used? Sriram Information not available 11/07/2022 Have You Had Direct Contact, Or Contact During Intimacy, With Monkeypox Rash, Scabs, Or Body Fluids From A Person With Monkeypox? No Information not available 11/07/2022 Do You Use Any Illicit Or Recreational Drugs? Yes Information not available 11/07/2022 Have You Recently Traveled Abroad? No Information not available 11/07/2022 Do You Or Have You Ever Used Any Other Forms Of Tobacco Or Nicotine? No Information not available 11/07/2022 Sex: Unknown Functional Status None recorded. Mental Status None recorded. Family History Relationship Description Onset Age of this Age Resolved Age Notes LastModified by Organization Details LastModified Time Father No current problems or disability Not available 11/07 10:14:35 Mother No current problems or disability Not available 11/07 10:14:35 Medical History No medical history recorded. Immunizations Vaccine Type Date Status Note Provider Nam e and Address Organization Details Recorded Time COVID-19, mRNA, LNP-S, PF, 100 mcg/0.5mL dose or 50 mcg/0.25mL dose 12/01/2021 completed Ana Dublin null, PA - [facility] 11/07/2022 10:13:47 COVID-19, mRNA, LNP-S, PF, 100 mcg/0.5mL dose or 50 mcg/0.25mL dose 03/18/2021 completed Ana Dublin null, PA - [facility] 11/07/2022 10:13:47 COVID-19, mRNA, LNP-S, PF, 100 mcg/0.5mL dose or 50 mcg/0.25mL dose 02/18/2021 completed Ana Denis null, PA - [facility] 11/07/2022 10:13:47 Past Encounters Encounter ID Performer Location Encounter Start Date Encounter Closed Date Diagnosis/Indication Diagnosis SNOMED-CT Code Diagnosis ICD10 Code Diagnosis Note [id number] [address] [place] [address] 04/14/2017 18:49:59 04/14/2017 19:31:45 [id number] [address] [place] [address] 07/07/2022 13:22:29 07/07/2022 15:07:00 [id number] [address] [place] [address] 04/21/2017 14:11:53 04/21/2017 14:40:28 [id number] [address] [place] [address] 05/05/2020 14:38:52 05/05/2020 15:08:56 [id number] [facility] [address] [place] [address] 11/07/2022 09:55:33 11/07/2022 11:45:31 Fever 332322902 R50.9 Night sweats 11833950 R6 1 Health Concerns Section Related Observation LastModified by Organization Detai ls LastModified Time None Recorded Concern Status LastModified by Organization Details LastModified Time None Recorded Advance Directives Directive None Recorded Payers Encounter Date Sequence Insurance Name Policy Number Policy Oneal Covered Member ID Oneal Member ID Guarantor Name 05/05/2020 1 [place] [facility] [id number] Amber A Billyunda [id number] Clay Cervantesundkojo 07/07/2022 1 [place] [facility] [place] [facility] [id number] Amber A Dorunda [id number] Clay Cervanetsunda 11/07/2022 1 [place] [facility] [id number] Amber A Dorunda [id number] Clay Maddox Notes Date Note Type Note Provider Name and Address Organization Details Recorded Time 2 text/html FeverReported bypatient.source of patient informationPatient arrived at Urgent Care ambulatory Duration:constant Context:no recent travel Associated Symptoms:no rash;weakness [facility] [place], [address], [place] - [facility] 11/07/2022 11:42:28
--- OUTSIDE RECORDS SUMMARY | 2025-03-25 12:57 | XMS_ITS | Clinical Summary ---
Author Organization [facility] Address [address] [place] [address] Care Team Providers Care Tectonophysicist Name Role Phone Bong Mcmahon Primary Care Provider [phone] Social History Tobacco Use Types Packs/Day Years Used Date Smoking Tobacco: Never Assessed Sex and Gender Information Value Date Recorded Sex Assigned at Not on file Legal Sex Male 12:18 PM EDT Gender Identity Not on file Sexual Orientation Not on file Plan of Treatment Health Maintenance Due Date Last Done Comments Hepatitis C Virus Screening 1960 DTaP/Tdap/Td Vaccines (1 - Tdap) 1977 Pneumococcal Vaccines 50+ (1 of 1 - PCV) 2008 Zoster (Shingles) Vaccine (1 of 2) 2008 COVID-19 Vaccine ( - 2023-2 5 season) 2024 RSV Vaccine 60 years and old er and Patients (1 - 1-dose 75+ series) 2033 Hepatitis B Vaccines Aged Out No long er eligible based on patient's age to complete this topic Care Teams Tectonophysicist Relationship Specialty Start Date End Date Bong Mcmahon [address] [place] [address] PCP - General
== END 2025-03-25 11:42 | disposition home or self-care (01) ==
LOC: HO.HOS 11:12
PROVIDERS: PCP Physician Assistant Medical; Visit Provider Orthopaedic Surgery
DX: M75.41 Impingement syndrome of right shoulder (principal)
CPT/HCPCS: 20610; 99213

== ENCOUNTER → 2025-03-25 11:12 | Outpatient (BNVA) | payer BC, SELFPAY | PROVIDERS: PCP Physician Assistant Medical; Visit Provider Orthopaedic Surgery | DX: M75.41 Impingement syndrome of right shoulder (principal) | CPT/HCPCS: 20610; J0665; J1100; J2003 ==